=== PATIENT | female | born 1970 | race Caucasian/White ===

== ENCOUNTER → 2018-09-14 16:50 | Outpatient (CLI) | payer OTHER, SELFPAY ==
[2018-07-31 12:38] VITALS: BMI 20.5
== END ==
PROVIDERS: Family Provider Nurse Practitioner; PCP Nurse Practitioner; Referring Provider Otolaryngology Otolaryngology/Facial Plastic Surgery; Visit Provider Otolaryngology Otolaryngology/Facial Plastic Surgery
DX: J32.9 Chronic sinusitis, unspecified (principal)
CPT/HCPCS: 87070; 87205

== ENCOUNTER → 2018-10-28 12:30 | Outpatient (CLI) | payer OTHER, SELFPAY ==
[2018-07-31 12:38] VITALS: BMI 20.5
--- NOTE | 2018-10-28 12:46 | CT_ITS ---
STUDY: CT MAXILLOFACIAL SINUSES REASON FOR EXAM: Female, 48 years old. RADIATION DOSAGE (If Supplied By Facility): CTDIvol = ( 33.06 ) mGy, DLP = ( 767.73 ) mGycm TECHNIQUE: The patient was scanned in a multi detector CT scanner. High resolution axial imaging was performed without the administration of intravenous contrast material. Sagittal and coronal images were reconstructed. Individualized dose optimization techniques were used for this CT. COMPARISON: None. FINDINGS: FRONTAL SINUSES: Normal aeration, without mucosal inflammatory disease. ETHMOIDAL SINUSES: Normal aeration, with minimal mucosal inflammatory disease. MAXILLARY SINUSES: Normal aeration, with air-fluid level noted in the right maxillary sinus SPHENOIDAL SINUSES: Normal aeration, without mucosal inflammatory disease. There is patency of the bilateral maxillary infundibuli with normal uncinate processes, ethmoid bullae, and hiatus semilunaris. Normal bilateral middle turbinates. Normal bilateral inferior turbinates. Normal midline nasal septum. There is patency of the bilateral nasal airways. The visualized osseous structures are normal. The visualized bilateral orbital contents are normal. CT/Sinus/Facial Bone IMPRESSION: Air-fluid level in the right maxillary sinus suggests acute maxillary sinusitis Minimal mucosal thickening in the ethmoid sinuses Electronically Signed: Edgardo Roldan MD at 17:20 EDT , Service support ,
== END ==
PROVIDERS: Family Provider Internal Medicine; PCP Internal Medicine; Referring Provider Otolaryngology; Visit Provider Otolaryngology
DX: J32.9 Chronic sinusitis, unspecified (principal)
CPT/HCPCS: 70486

== ENCOUNTER 2019-06-17 04:29 | Emergency (ER) | payer OTHER, SELFPAY ==
[2018-07-31 12:38] VITALS: BMI 20.5
[2019-06-17 04:30] VITALS: BP 133/92; PULSE 69; RESP 14; TEMP 36.5; O2SAT 100; BMI 20.9
--- NOTE | 2019-06-17 04:49 | ED.VIS.FEGU ---
History of Present Illness Chief Complaint: Vag Bleeding Informant: Patient Pain: Pelvic Pain Onset: Days - 3 Context: Gradual Onset Timing: Waxes and wanes Quality: Cramping Location: Suprapubic Current Severity: Moderate Maximum Severity: Moderate Relieved by: - - Not relieved by Advil Issue: Vaginal bleeding Onset: Days 11-19 Current Severity: Heavy Current pads/hr: 1 - x about 48 hrs Maximum Severity: Heavy Associated Symptoms: Irregular Period - for 1-2 yrs. Negative for: Dysuria, Frequency, Urgency, Hematuria Last known menstrual period: 3 mos ago Sexually: Active, Single Partner - Control: No control Narrative: Heavy vaginal bleeding for the past 48 hours or so, states that she has been going through about 1 pad/tampon per hour for that entire period of time. Feeling generally weak but not lightheaded or near syncopal. She is having some pelvic cramping that is similar to menstrual cramping but worse. It is nonlateralizing. No vaginal discharge or other symptoms. Past Medical History - Allergies and Home Meds Allergies/Adverse Reactions: Allergies ampicillin trihydrate [From Principen] Allergy (Verified 06/17/19 04:30) Rash azithromycin Allergy (Verified 06/17/19 04:30) Hives clarithromycin Allergy (Verified 06/17/19 04:30) Other doxycycline Allergy (Verified 06/17/19 04:30) Rash Penicillins Allergy (Verified 06/17/19 04:30) Unknown Sulfa (Sulfonamide Antibiotics) Allergy (Verified 06/17/19 04:30) Unknown Primary Care Physician: Iris Humphries DO [Primary Care Provider] - Past Medical History: None Lives: With Family Smoking Status: Never smoker Review of Systems General: Reports: Malaise. Denies: Chills, Fever, Sweats Eyes: Denies: Visual changes - bilaterally, Diplopia ENT: Denies: Rhinorrhea, Sore throat Cardiovascular: Denies: Chest pain, Palpitations Respiratory: Denies: Dyspnea, Cough, Dyspnea on exertion Gastrointestinal: Reports: Abdominal pain. Denies: Nausea, Vomiting, Diarrhea, Melena, Hematochezia Genitourinary: Reports: - - Vaginal bleeding. See HPI.. Denies: Dysuria, Hematuria, Frequency Musculoskeletal: Denies: Back pain, Extremity Pain Skin: Denies: Rash, Wounds Neurological: Denies: Headache, Weakness, Numbness Physical Exam Vital Signs/Narrative: Vital Signs Temp Pulse Resp BP Pulse Ox 06/17/19 04:30 97.7 F L 69 14 133/92 H 100 Inital Vital Signs reviewed: Yes General: Well nourished, Well developed, - - Well-appearing, conversive, no acute distress Head: Normocephalic, Atraumatic Eyes: Perrl, EOMI ENT: Moist mucous membranes, No rhinorrhea Neck: Supple, Nontender Cardiovascular: Regular rate, Regular rhythm, No murmurs. Negative for: Tachycardia Respiratory: No distress, CTA bilaterally, Chest nontender Abdomen: Soft, Nondistended, Normal bowel sounds, Tender - Suprapubic only. Negative for: Guarding, Rebound tenderness : Speculum exam: Normal external genitalia, No vaginal lesions, No vaginal discharge Back: Nontender, Normal Inspection. Negative for: CVA tenderness Extremities: Nontender, No edema Skin: Normal color, No rash, No Trauma Neurological: Alert, Oriented x3, Cranial nerves II-XII grossly intact, Normal Strength, Normal Sensation, Normal Gait Psychological: Normal affect, Normal Mood Diagnostic/Tx/Re-eval Laboratory Tests 06/17/19 06/17/19 Range/Units 04:40 04:40 WBC 5.5 (4.4-11.0) K/mm3 RBC 3.49 L (4.2-5.4) M/mm3 Hgb 11.8 L (12.0-15.0) g/dL Hct 33.9 L (37-47) % MCV 97.1 (81-99) fL MCH 33.8 H (27.0-32.0) pg MCHC 34.8 (32-36) g/dL RDW Std Deviation 41.6 (35.1-43.9) fl RDW Coeff of Rosi 11.7 (11.6-14.6) % Plt Count 148 L (150-450) K/mm3 MPV 11.7 (6.2-12.0) fl Immature Gran % (Auto) 0.500 (0.0-0.9) % Neut % (Auto) 59.1 (47-70) % Lymph % (Auto) 22.8 (19-41) % Emmet % (Auto) 11.6 H (0-10) % Eos % (Auto) 5.1 H (0-5) % Baso % (Auto) 0.9 (0-1) % Absolute Neuts (auto) 3.3 (2.0-7.7) X10^3/uL Absolute Lymphs (auto) 1.26 (0.83-4.51) X10^3/uL Nucleated RBC % 0 (0-5) % Serum , Qual NEGATIVE Negative - Medical Decision/Diagnostic Studies Pelvic exam shows very mild vaginal bleeding right now. Orthostatics are normal, she is clinically well-appearing and hemodynamically very stable. Her hemoglobin is 11.3. This is very reassuring in context. I discussed all this with Dr. Capps, her recommendation is to prescribe Provera 10 mg daily for 10 days and to have her follow-up in the office which I think is very reasonable. Her was negative, I discussed all this with the patient she is comfortable with this plan. I do not think an emergent ultrasound is necessary or indicated right now, but it may be obtained as an outpatient. Ultrasound is not available at the time this patient was seen overnight. ED Disposition - Plan for ED Patient: Disposition: Home or Assisted Living Diagnosis: Dysfunctional uterine bleeding Instructions: Dysfunctional Uterine Bleeding Prescriptions: Medroxyprogesterone Acetate [Provera] 10 mg PO DAILY #10 tab Transmission Status: Pending to [id number] Referrals: Emely Capps MD [STAFF PHYSICIAN] - As soon as possible (call for appt)
[2019-06-17 04:52] LABS: Hematocrit 33.9 % (37-47); Hemoglobin 11.8 g/dL (12.0-15.0); Lymphocyte % 22.8 % (19-41); Mean Corp Hgb Conc 34.8 g/dL (32-36); Mean Corpuscular Hgb 33.8 pg (27.0-32.0); Mean Corpuscular Volume 97.1 fL (81-99); Mean Platelet Vol. 11.7 fl (6.2-12.0); Monocyte% 11.6 % (0-10); Neutrophil % 59.1 % (47-70); Platelet Count 148 K/mm3 (150-450); RBC Distribution Width CV 11.7 % (11.6-14.6); RBC Distribution Width SD 41.6 fl (35.1-43.9); Red Blood Count 3.49 M/mm3 (4.2-5.4); White Blood Count 5.5 K/mm3 (4.4-11.0)
[2019-06-17 04:53] LABS: Absolute Lymphocyte Count 1.26 X10^3/uL (0.83-4.51); Absolute Neutrophil Count 3.3 X10^3/uL (2.0-7.7); Basophil# 0.05 X10^3/uL; Basophil% 0.9 % (0-1); Eosinophil# 0.28 X10^3/uL; Eosinophils% 5.1 % (0-5); Lymphocyte # 1.26 X10^3/ul (4.0); Monocyte# 0.64 X10^3/uL; NRBC Flagged by Analyzer 0 % (0-5); Neutrophil # 3.26 X10^3/uL (2.7-7.7)
[2019-06-17 05:00] LABS: Internal QC Validated? YES +Cl - CLEAR BKGD; Pregnancy, Serum, hCG Quali. NEGATIVE Negative
[2019-06-17 05:02] VITALS: BP 112/82; BP 114/82; BP 115/80; PULSE 65; PULSE 69; PULSE 77
[2019-06-17] MEDS: 0.9% Normal Saline 1,000 ML 1000 ML IV (05:08)
[2019-06-17 05:36] VITALS: BP 114/60; PULSE 67; RESP 18; O2SAT 98
== END 2019-06-17 05:36 | disposition home or self-care (01) ==
PROVIDERS: Emergency Provider Emergency Medicine; Family Provider Internal Medicine; PCP Internal Medicine
DX: N93.8 Other specified abnormal uterine and vaginal bleeding (principal)
CPT/HCPCS: 84703; 85025; 99284; J7030; A4216

== ENCOUNTER 2019-07-08 10:28 | Day surgery (SDC) | payer OTHER, SELFPAY ==
[2019-07-05 17:38] LABS: Hematocrit 27.1 % (37-47); Hemoglobin 8.7 g/dL (12.0-15.0); Mean Corp Hgb Conc 32.1 g/dL (32-36); Mean Corpuscular Hgb 32.6 pg (27.0-32.0); Mean Corpuscular Volume 101.5 fL (81-99); Mean Platelet Vol. 11.8 fl (6.2-12.0); Platelet Count 201 K/mm3 (150-450); RBC Distribution Width CV 12.3 % (11.6-14.6); RBC Distribution Width SD 45.2 fl (35.1-43.9); Red Blood Count 2.67 M/mm3 (4.2-5.4); White Blood Count 4.9 K/mm3 (4.4-11.0)
[2019-07-08] VITALS (7 sets, daily range): BP systolic 111–127; BP diastolic 78–83; PULSE 77–88; RESP 15–16; TEMP 36.8–37.2; O2SAT 100; BMI 20.2
--- NOTE | 2019-07-08 06:59 | HP.PCM_ITS ---
History and Physical Date of Admission: 07/08/19 Radha Doherty, a 48 year old female 1 0 2 0 1, presented for: -- Pre-Op Radha is being seen for pre op visit. Pt to have D and C, possible polypectomy with Dr. Capps on 07-08-19. Pt having surgery due to heavy, irregular bleeding. Medications and allergies are up to date. Surgery consents signed and information reviewed with pt. AM -- Here for preop dary prior to D and C and possible polypectomy for heavy , irregular bleeding. Pelvic sono at last visit reviewed: UTERUS: 9.3 x 5.2 x 4.2cm. ENDOMETRIAL ECHO: 16.6mm -- Thickened endometrium irregular endo stripe noted. RIGHT OVARY: 3 x 2.5 x 1cm. simple cyst seen measures 2.6 x 1.9 x 2.2cm. LEFT OVARY: 2.3 x 2.3 x 2cm. simple cyst seen measures 1.5 x 1.5 x 1.2cm. FREE FLUID: NONE. Advised of R,B,A of EMB in ofc vs D and C and possible polypectomy in OR. After consideration she elects to proceed with D and C and polypectomy in the OR. Initially requested Dec date for surgery , but called then to move this up due to continued bleeding. EB ALLERGIES: Penicillins, Rash, Sulfa (Sulfonamide Antibiotics), Nausea, Biaxin, Muscle aches, Doxycycline, Rash, Erythromycin Base and Nausea MEDICATIONS HISTORY: Patient is also takin. No Meds REVIEW OF SYSTEMS: GENERAL - Denies fever, or chills SKIN - Denies skin changes EYES - Denies visual changes EARS - Denies difficulty hearing NOSE - Denies nasal congestion or bleeding MOUTH - Denies sore throat or difficulty swallowing NECK - Denies pain or swelling RESPIRATORY - Denies shortness of breath or wheezing CARDIOVASCULAR - Denies palpitations or chest pain GASTROINTESTINAL - Denies nausea, vomiting, diarrhea, constipation GENITOURINARY - Denies dysuria, frequency of urination, incontinence of urine MUSCULOSKELETAL - Denies joint or muscle pain NEUROLOGICAL - Denies localized numbness or weakness PSYCHIATRIC - Denies depression or anxiety ENDOCRINE - Denies heat or cold intolerance, weight loss or gain HEMATO-IMMUNOLOGIC - Denies excessive bleeding with cuts PAST HISTORY: Breast/Ovarian/Colon Cancers - Denies Infections - Chicken pox Illnesses - BAV, back pain Accidents - no injuries of consequence History of Abnormal PAPS - Denies Hospitalizations - Childbirth and see surgery endometriosis and alopecia; SURGICAL HISTORY: 1. T and A 2. one wisdom tooth 3. laparoscopy MENSTRUAL HISTORY: LMP Known?- Approximate Amount/Duration - prolonged, Regularity - missed periods, Prior Menses - 03/17/2005, LMP - 06/12/19, Age Onset Menarche - 13 FAMILY HISTORY: Maternal Grandparent - Type 2 Diabetes; SOCIAL HISTORY: Alcohol Use - denies drinking Smoking - denies smoking Diet - moderate, balanced diet Lifestyle - low stress lifestyle and Exercise - none Seat Belt Use - always Employer - [employer] Job Description - credit collections rep Illicit Drug Use - denies use of street drugs Sexual Activity - Hours Worked - 40 hours per week Spouse-Sig Other Name - Richard Doherty Spouse-Sig Other Occupation - [employer] Children Name(s) - Dale Control - none PHYSICAL EXAMINATION BP- 114/82 Sitting, Right arm, regular cuff Temp- 98.1 Taken Orally Weight- 127.80 lbs Height- 64.50 inch BMI:21.64 CONSTITUTIONAL - well nourished, well developed and in no distress HEENT - Normocephalic, atraumatic, sclerae anicteric. EOMI. NECK - no nuchal rigidity EXTREMITIES - no deformities NEUROLOGICAL - cranial nerves 2-12 intact PSYCHIATRIC - alert, oriented to time, place, and person, mood appropriate and affect appropriate ASSESSMENT: 1. Excessive Bleeding In The Premenopausal Period 2. Abnormal Findings On Diagnostic Imaging Of Other Specified Body Structures PLAN BY DIAGNOSIS: 1. Abnormal Findings On Diagnostic Imaging Of Other Specified Body Structures and Excessive Bleeding In The Premenopausal Period Reviewed ED records, and sono results from prior visits. Differential diagnosis reviewed at last visit and discussed available treatments then. Thickened endometrium on pelvic ultrasound. Recommend: hysteroscopy, D and C, and possible resection of polyp if present. Elects to proceed with D and C (only) with possible polypectomy , no hysteroscopy... to contain costs. Reviewed R,B,A of D and C , polypectomy as well as anticipated preop, operative and postop recovery. All questions answered, Consents signed To central registration next for repeat CBC. Plan UPT day of surgery. RTO in 2 wk after surgery for next appt, postop check up. Patient seen and examined prior to surgery. NO changes in dx or plan, physical exam. Pt's family with questions re pt leg cramps: advised re meds, most commonly d/t her anemia. Other meds: calcium, Mg, Potassium also ok. Proceed with suction D and C and possible polypectomy. Meredith Capps MD 07/08/19 [id number]
[2019-07-08 10:46] LABS: Internal QC Validated? YES +Cl - CLEAR BKGD
[2019-07-08 10:50] LABS: Pregnancy, Urine Negative Negative
[2019-07-08] MEDS: Lactated Ringers 1,000 ML 100 ML IV (11:02)
--- NOTE | 2019-07-08 12:00 | EMB_PTH ---
PATIENT: THEA SEGURA [place] [facility] [place][id number] AGE/SX: 48/F ROOM: RE07/08/[address]: Dr. Emely Capps MD : 1970 BED: DIS: 07/08/2019 SPEC #: [id number] RECD: 07/08/19 16:18 STATUS: STANTON MICKEY #: [id number] NADINE: 07/08/19 12:[address]: Emely Capps DEPT: SURGICAL PATHOLOGY RECD BY: Lisy Garcia ENTERED: 07/11/19 11:12 SP TYPE: ENDOM BX/C LEYDA DR: Dr. Iris Humphries DO Tissues: Endometrium, NOS Procedures: Surgery Specimen Level IV HEADER OPERATION: Dilation and curettage PRE-OP DIAGNOSIS: Excessive bleeding in the premenopausal period, abnormal findings of diagnostic image TISSUE SUBMITTED: Endometrial curettings MICROSCOPIC DIAGNOSIS Endometrial curettings: Proliferative endometrium with glandular and stromal breakdown. CJ:yvonne 07/12/19 MICROSCOPIC DESCRIPTION Slides are reviewed. GROSS DESCRIPTION Received in fixative is one container labeled with the patient's name and designated endometrial curettings. The specimen consists of multiple fragments of hemorrhagic soft tissue mixed with mucoid tissue that in aggregate measure 3 x 2.5 x 0.3 cm. The entire specimen is submitted in one cassette. / CJ:yvonne 07/11/19 TC:5 CPT: 95937
--- NOTE | 2019-07-08 12:21 | DCINST_ITS ---
Discharge Diet: No Restrictions Discharge Activity: May Shower, May Take a Tub Bath Return to work on:: 07/11/19 May resume sexual activity in: 1 week Call your doctor if you observe: Fever of 101 or Higher, Using more than one pad per hour, Uncontrolled pain Additional Instructions: Take tylenol 500 mg tablets one or two tablets by mouth every 8 hrs as needed for pain. Add EITHER two (220 mg tablets) Aleve or Three (200 mg tablets) Ibuprofen by mouth every 8 hr if needed for more severe pain. Allergies/Adverse Reactions: Allergies ampicillin trihydrate [From Principen] Allergy (Verified 07/08/19 10:36) Rash azithromycin Allergy (Verified 07/08/19 10:36) Hives clarithromycin Allergy (Verified 07/08/19 10:36) Other doxycycline Allergy (Verified 07/08/19 10:36) Rash Penicillins Allergy (Verified 07/08/19 10:36) Unknown Sulfa (Sulfonamide Antibiotics) Allergy (Verified 07/08/19 10:36) Unknown Medications to take at Discharge Acetaminophen [Tylenol Extra Strength] 500 mg PO Q4H PRN PRN 07/06/19 RX: Ferrous Gluconate 325 mg PO BIDCM #60 tab 07/08/19 The following prescriptions were given: RX: Ferrous Gluconate 325 mg PO BIDCM #60 tab Transmission Status: Pending to [id number] Primary Care Physician: Iris Humphries DO [Primary Care Provider] - Test Results: Test results from this visit will be discussed in further detail at your follow- up appointment, if applicable. Please Follow Up With: Emely Capps MD When: 1-2 wk as scheduled for postop check up
--- NOTE | 2019-07-08 12:26 | OP.PCM_ITS ---
Report of Operation Date of Procedure: 07/08/19 Pre-Operative Diagnosis: menorrhagia, excessive bleeding premenopause. Th ickened endometrial stripe on sono, possible endometrial polyp Post-Operative Diagnosis: same Surgery/Procedure Performed:: Dilation and curettage Description of Surgical Findings:: Findings: Parous appearing cervix, minimal uterine curettings Type of Anesthesia:: Local MAC Anesthesiologist: Kenya Gorman CRNA Specimen's removed: Uterine curettings, possible polyp Fluids Replaced: LR Description of Procedure: Narrative account After the R,B,Alternatives of the procedure were reviewed with the patient and her family, informed consent was obtained. The patient was taken to the operat ing room with an IV running and placed in dorsal supine position of the operating table. She was given MAC IV sedation and repositioned to the dorsal lithotomy position and prepped and draped in the usual sterile fashion. A graves speculum was placed into the vagina and the cervix was brought into view. The cervix was parous appearing . The cervix was instilled with 10 cc of 1% lidocaine as a paracervical block using a 22 G spinal needle. A single toothed tenaculum was applied to the anterior lip of the cervix. The cervix was then gently probed and sequentially dilated to allow admission of the curette. A sharp curettage was performed and minimal tissue was withdrawn and set aside. The polyp forceps were introduced then to evacuate additional tissue. no polyp was noted. One final pass was conducted with the sharp curette tip advanced through the cervix to the uterine fundus . Good Crei was noted in all quadrants. The tissue was set aside for later pathology review. Excellent hemostasis was noted. The single toothed tenaculum was removed from the cervix and a RayTec was used to remove any remaining tissue and blood from the upper vagina and cervix. The procedure was terminated. The speculum was removed. The patient was returned to dorsal supine position and awakened from IV sedation and transferred to her recovery room bed in stable condition after tolerating the procedure well. Urine 50 cc for case. Sponge, lap, needle and instrument counts were correct x two. medications given intraoperatively included 10 cc of 1% lidocaine without epinephrine instilled as a paracervical block. - Admit VTE Documentation VTE Present on Admission: No VTE Mechan Device Prophylaxis: SCD's VTE Pharm Prophylaxis ordered?: No
[2019-07-08 12:52] LABS: Hematocrit 25.1 % (37-47); Hemoglobin 8.3 g/dL (12.0-15.0); Mean Corp Hgb Conc 33.1 g/dL (32-36); Mean Corpuscular Hgb 33.5 pg (27.0-32.0); Mean Corpuscular Volume 101.2 fL (81-99); Mean Platelet Vol. 11.3 fl (6.2-12.0); Platelet Count 191 K/mm3 (150-450); RBC Distribution Width SD 43.3 fl (35.1-43.9); Red Blood Count 2.48 M/mm3 (4.2-5.4); White Blood Count 3.4 K/mm3 (4.4-11.0)
[2019-07-08] MEDS: Acetaminophen 500 MG Tablet 1000 MG PO (13:03)
== END 2019-07-08 14:18 | disposition home or self-care (01) ==
LOC: SDC 10:28 → AC 10:29
PROVIDERS: Family Provider Internal Medicine; PCP Internal Medicine; Referring Provider Obstetrics & Gynecology; Visit Provider Obstetrics & Gynecology
PROC: (CPT 58120; principal; 2019-07-08 11:45)
DX: N85.8 Other specified noninflammatory disorders of uterus (principal); N92.4 Excessive bleeding in the premenopausal period; Q23.1 Congenital insufficiency of aortic valve; D64.9 Anemia, unspecified
CPT/HCPCS: 00940; 58120; 36415; 81025; 85027; 88305; J7120; J2405

== ENCOUNTER → 2019-07-22 09:42 | Outpatient (CLI) | payer BC, SELFPAY ==
[2019-07-08 10:49] VITALS: BMI 20.2
--- NOTE | 2019-07-22 09:48 | BI_ITS ---
MAMMOGRAPHY - BILATERAL SCREENING REASON FOR EXAM: Female, 48 years old. Routine annual screening examination. PERTINENT HISTORY: Non-contributory. TECHNIQUE: Digital bilateral breast alejandro (3D mammographic acquisition) in the CC and MLO projections. 2-D mediolateral oblique (MLO) and craniocaudad (CC) views of both breasts were obtained. CAD: Full Field Digital Mammography with Computer Added Detection was performed. COMPARISON: Comparison is made with prior study dated March 12, 2017 and December 06, 2014. FINDINGS: Breast Composition: The breasts are extremely dense, which lowers the sensitivity of mammography. There are no dominant masses or suspicious calcifications. No other significant abnormalities are identified. There has been no significant change since the prior study. BI/SCREEN MAMM (CAD) W/ALEJANDRO BILAT IMPRESSION: Stable bilateral screening mammogram. Yearly follow-up mammogram recommended. (A) ASSESSMENT CATEGORY: BIRADS Category 1: Negative. A letter regarding these results will be sent to the patient by the facility within 30 days. Approximately 10% of breast cancers are not detected by mammography. A normal mammogram should not delay biopsy of a clinically suspicious abnormality. [id number] Electronically Signed: Jose Rafael Luna, at 11:04 EST , Service support ,
== END ==
PROVIDERS: Family Provider Internal Medicine; PCP Internal Medicine; Referring Provider Obstetrics & Gynecology; Visit Provider Obstetrics & Gynecology
DX: Z12.31 Encounter for screening mammogram for malignant neoplasm of breast (principal)
CPT/HCPCS: 77063; 77067

== ENCOUNTER → 2019-09-14 14:31 | Outpatient (CLI) | payer BC, SELFPAY ==
[2019-07-08 10:49] VITALS: BMI 20.2
--- NOTE | 2019-09-14 14:40 | RAD_ITS ---
STUDY: X-RAY - CERVICAL SPINE REASON FOR EXAM: Female, 48 years old. A possible lump on the back of the neck. TECHNIQUE: 6 view(s) of the cervical spine were obtained. COMPARISON: None FINDINGS: Normal anterior atlantoaxial articulation. Normal odontoid process. Normal cervical lordosis. Normal vertebral bodies and endplates. Normal disc space heights. Normal visualized intervertebral neuroforamina. There is no evidence of acute fracture or loss of vertebral axial height. There is maintenance of normal alignment. The soft tissue structures are unremarkable. RAD/Cerv Spine 4 or 5 Views IMPRESSION: Normal x-ray examination of the visualized cervical spine. Electronically Signed: Yemi Kemp DO at 23:06 EST Tel [phone], Service support ,
== END ==
PROVIDERS: PCP Internal Medicine; Referring Provider Nurse Practitioner; Visit Provider Nurse Practitioner
DX: M54.2 Cervicalgia (principal)
CPT/HCPCS: 72050

== ENCOUNTER → 2019-10-21 07:17 | Outpatient (CLI) | payer BC, SELFPAY ==
[2019-10-06 14:00] VITALS: BMI 20.2
--- NOTE | 2019-10-21 07:45 | MRI_ITS ---
STUDY: MRI SOFT TISSUE NECK WITH AND WITHOUT CONTRAST REASON FOR EXAM: Female, 49 years old. Posterior Neck lump x 2 months. Area of spinous process. (unable to palpate anything) TECHNIQUE: Standarized fat and water weighted pulse sequences were obtained in all 3 orthogonal plane pre and post administration of 11ml dotarem IV. COMPARISON: X-ray 09/14/2019 FINDINGS: Normal bilateral parotid glands. Normal bilateral girls tennis coach spaces. Normal bilateral parapharyngeal spaces. Normal bilateral carotid spaces. Normal bilateral sublingual and submandibular glands and spaces. Normal visualized nasopharynx. Normal retropharyngeal space. Normal perivertebral space. Normal visualized bilateral faucial tonsils. The visualized tongue, tongue base and oropharynx are normal. The visualized cervical lymph nodes (levels I-) are within normal size limits, and maintain normal morphology. There is no demonstrated solid or cystic mass lesion. There is no abnormal contrast enhancement. Normal epiglottis, bilateral vallecula and hypopharynx. The pre-epiglottic and paraglottic adipose spaces are normal. Normal visualized bilateral piriform sinuses, aryepiglottic folds, vocal cords, and arytenoid-cricoid articulations. Normal subglottic trachea. Normal bilateral lobes of the thyroid gland. Normal visualized pulmonary apices. Normal visualized paranasal sinuses. Normal visualized cervical spine. MRI/Orbit Face Neck W/WO Contrast IMPRESSION: Normal unenhanced and enhanced MRI examination of the soft tissues of the neck. Electronically Signed: Ron Greer MD at 9:10 EST Tel , Service support ,
== END ==
PROVIDERS: PCP Internal Medicine; Referring Provider Internal Medicine; Visit Provider Internal Medicine
DX: R22.1 Localized swelling, mass and lump, neck (principal)
CPT/HCPCS: 70543; A9575

== ENCOUNTER 2020-06-19 07:05 | Emergency (ER) | payer BC, SELFPAY ==
[2019-10-06 14:00] VITALS: BMI 20.2
[2020-06-19 07:06] VITALS: BP 134/83; PULSE 76; RESP 22; TEMP 36.7; O2SAT 100; BMI 21.7
--- NOTE | 2020-06-19 07:59 | CT_ITS ---
STUDY: CT BRAIN WITHOUT CONTRAST REASON FOR EXAM: Female, 49 years old. Dizziness, headache, nausea/vomiting today. Hx migraines, nasal septoplasty. RADIATION DOSAGE (If Supplied By Facility): CTDIvol = ( 44.99 ) mGy, DLP = ( 745.49 ) mGycm TECHNIQUE: Transaxial CT imaging of the brain was performed without administration of intravenous contrast material. Individualized dose optimization techniques were used for this CT. COMPARISON: No relevant priors. FINDINGS: Normal soft tissue structures. Normal calvarium. Normal size ventricles and extra-axial spaces for the patient''s age. Normal white matter tracts of the cerebral hemispheres. Normal basal ganglia and thalami. Normal brainstem. Normal cerebellum. There is no intracranial hemorrhage. There are no findings of an acute ischemic infarction. Minimal mucosal thickening of the maxillary sinuses bilaterally. Partial opacification of the ethmoid sinuses bilaterally. Air-fluid level is seen in the left sphenoid sinus. CT/Brain/Head without Contrast IMPRESSION: Sinusitis. Electronically Signed: Jose Rafael Luna, at 9:00 EST , Service support ,
--- NOTE | 2020-06-19 08:00 | EKG12_ITS ---
Test Reason : DIZZINESS Blood Pressure : / mmHG Vent. Rate : 068 BPM Atrial Rate : 068 BPM P-R Int : 152 ms QRS Dur : 072 ms QT Int : 396 ms P-R-T Axes : 076 066 066 degrees QTc Int : 421 ms Normal sinus rhythm Normal ECG Confirmed by LYN HENSLEY, JORDY ([id number]), editorial clerk BARRY MALLORY ([id number]) on 06/21/2020 11:35:23 AM Referred By: BRUNO Confirmed By:JORDY NICHOLSON MD
--- NOTE | 2020-06-19 08:01 | ED.VISSUMM ---
- ER Visit Summary Date of Service: 06/19/20 Chief Complaint: Dizziness and headache History of Present Illness: The patient is a 49 F who presents with dizziness and a headache that began this morning. Patient states she woke up and she felt dizzy. Patient states she felt like her eyes were spinning. Patient also admits to a frontal headache. Patient states her dizziness is worse with any movement of her head. Patient also admits to some tinnitus in her left ear. Patient denies any hearing loss. Patient admits to some nausea and vomiting. Patient denies any fevers or chills. Patient denies any chest pain or shortness of breath. Physical Examination: Vital signs are stable except for mild tachypnea of 22. Patient is afebrile. Patient is in no acute distress. Pupils are equal, round, and reactive to light bilaterally. Extraocular muscles are intact. There is no nystagmus noted. Tympanic membranes are clear bilaterally. Oral mucosa is pink and moist. Neck is supple. Trachea is midline. There is no JVD noted. Heart was regular rate and rhythm. Lungs are clear and equal bilaterally. Abdomen is soft. Bowel sounds are normal. There is mild diffuse tenderness. There is no rebound or guarding noted. Skin is warm dry. Cranial nerves II through XII are intact. There are no focal motor or sensory deficits noted. Test Results: EKG showed normal sinus rhythm with a rate of 58. There are no acute ST or T wave changes. This was unchanged compared to previous EKG dated 11/28/2014. CBC was essentially within normal limits. Comprehensive metabolic profile was normal. Urinalysis does not show any evidence of urinary tract infection. Troponin was normal. CT scan of the brain was obtained. There is no acute intracranial abnormality noted. This was interpreted by the radiologist and reviewed by myself. Emergency Department Course and Treatment: Patient was given a dose of meclizine and Zofran here. Patient was feeling better on reevaluation. Patient was advised that this is most likely a peripheral vertigo. Patient was given prescriptions for meclizine and Zofran. Patient was instructed to follow-up with her primary care physician in 5 to 7 days. Patient understood and was agreeable with the plan. All questions were answered. Disposition: Discharge home Impression: Vertigo This note was generated with [employer] software. It may contain incorrect words, spelling, and punctuation that were not noted in review of the chart prior to signing ED Disposition - Plan for ED Patient: Disposition: Home or Assisted Living Diagnosis: Vertigo Instructions: ED BPV Vertigo Prescriptions: Meclizine HCl [Antivert] 25 mg PO TID PRN PRN #20 tab PRN Reason: Dizziness Transmission Status: Pending to [id number] Ondansetron [Zofran Odt] 4 mg PO Q8H PRN PRN #10 tab PRN Reason: Nausea Transmission Status: Pending to [facility] Referrals: Iris Humphries DO [Primary Care Provider] - 3-5 Days
[2020-06-19 08:13] LABS: Absolute Lymphocyte Count 0.83 X10^3/uL (0.83-4.51); Absolute Neutrophil Count 2.3 X10^3/uL (2.0-7.7); Basophil# 0.05 X10^3/uL; Basophil% 1.3 % (0-1); Eosinophil# 0.29 X10^3/uL; Eosinophils% 7.5 % (0-5); Hematocrit 40.4 % (37-47); Hemoglobin 13.6 g/dL (12.0-15.0); Lymphocyte # 0.83 X10^3/ul (4.0); Lymphocyte % 21.4 % (19-41); Mean Corp Hgb Conc 33.7 g/dL (32-36); Mean Corpuscular Hgb 33.2 pg (27.0-32.0); Mean Corpuscular Volume 98.5 fL (81-99); Mean Platelet Vol. 11.8 fl (6.2-12.0); Monocyte# 0.38 X10^3/uL; Monocyte% 9.8 % (0-10); NRBC Flagged by Analyzer 0 % (0-5); Neutrophil % 59.5 % (47-70); Platelet Count 142 K/mm3 (150-450); RBC Distribution Width CV 11.7 % (11.6-14.6); RBC Distribution Width SD 42.7 fl (35.1-43.9); White Blood Count 3.9 K/mm3 (4.4-11.0)
[2020-06-19] MEDS: Ondansetron 4 MG/2 ML Vial IV (08:21)
[2020-06-19] MEDS: 0.9% Normal Saline 1,000 ML 1000 ML IV (08:21)
[2020-06-19] MEDS: Meclizine HCl 25 MG Tablet PO (08:21)
[2020-06-19 08:30] LABS: ALB/GLOB Ratio 1.2 RATIO (0.9-2.4); AST(SGOT) 11 U/L (15-37); Alanine Aminotransfer ALT/SGPT 18 U/L (13-56); Albumin, Serum 3.6 g/dL (3.2-5.0); Alkaline Phosphatase 47 U/L (45-117); Anion Gap 6 (5-15); BUN 24 mg/dL (7-18); BUN/Creat Ratio 28.5 RATIO (10-20); Calcium,Total 8.4 mg/dL (8.5-10.1); Chloride 109 mmol/L (98-107); Creatinine, Serum 0.84 mg/dL (0.55-1.02); EST Glomerular Filtration Rate 77 mL/min (>60); Est Glom Filt Rate - Afr Amer 93 mL/min (>60); Estimated Creatinine Clearance 77.51 ml/min; Globulin 2.9 g/dL (2.2-4.2); Glucose 99 mg/dL (74-106); Potassium 3.9 mmol/L (3.5-5.1); Protein, Total 6.5 g/dL (6.4-8.2); Sodium Level 142 mmol/L (136-145)
[2020-06-19 09:01] LABS: Bacteria 0 SEEN /hpf (None Seen); White Blood Cells 0 SEEN /hpf (0-5)
[2020-06-19 09:05] LABS: Color, Urine Yellow (Yellow); Glucose, Dipstick Normal (Normal); Ketone-Dipstick Negative (Negative); Leukocyte Esterase-Dipstick Negative /ul (Negative); Nitrite-Dipstick Negative (Negative); Occult Blood-Urine 250 /ul (Negative); Protein-Dipstick Negative (Negative); Urine Bilirubin Dipstick Negative (Negative); Urine Clarity Sl. Cloudy (Clear); Urine Urobilinogen Normal (Normal)
[2020-06-19 09:10] LABS: Squamous Epithelial Cells - UA 5-10 SEEN /hpf (5-10)
[2020-06-19 09:11] LABS: Mucous, Urine 3+ /hpf (<or=2+); Red Blood Cells-Urine 0-5 SEEN /hpf (0-5)
[2020-06-19 09:36] VITALS: BP 115/77; PULSE 75
[2020-06-19 10:18] VITALS: BP 126/81; PULSE 70; RESP 16; O2SAT 100
== END 2020-06-19 10:19 | disposition home or self-care (01) ==
PROVIDERS: Emergency Provider Emergency Medicine; PCP Internal Medicine
DX: R42 Dizziness and giddiness (principal)
CPT/HCPCS: 70450; 80053; 81001; 84484; 85025; 93005; 96361; 96374; 99285; J7030; A4216; J2405

== ENCOUNTER → 2020-08-08 10:15 | Outpatient (CLI) | payer BC, SELFPAY | PROVIDERS: PCP Internal Medicine; Referring Provider Otolaryngology; Visit Provider Otolaryngology | DX: Z20.828 Contact with and (suspected) exposure to other viral communicable diseases (principal); Z11.59 Encounter for screening for other viral diseases | CPT/HCPCS: 87635; C9803; U0003 ==

== ENCOUNTER → 2021-01-25 07:55 | Outpatient (CLI) | payer OTHER, SELFPAY ==
--- NOTE | 2021-01-25 08:20 | BI_ITS ---
MAMMOGRAPHY - BILATERAL SCREENING REASON FOR EXAM: Female, 50 years old. Routine annual screening examination. PERTINENT HISTORY: Non-contributory. TECHNIQUE: Digital bilateral breast alejandro (3D mammographic acquisition) in the CC and MLO projections. 2-D mediolateral oblique (MLO) and craniocaudad (CC) views of both breasts were obtained. CAD: Full Field Digital Mammography with Computer Added Detection was performed. COMPARISON: Comparison is made with prior study dated 07/22/2019 and 03/12/2014. FINDINGS: Breast Composition: The breasts are extremely dense, which lowers the sensitivity of mammography. There are no dominant masses or suspicious calcifications. No other significant abnormalities are identified. There has been no significant change since the prior study. BI/SCRN MAMM (CAD)W/ALEJANDRO BILAT IMPRESSION: Stable bilateral screening mammogram. Yearly follow-up mammogram recommended. (A) ASSESSMENT CATEGORY: BIRADS Category 1: Negative. A letter regarding these results will be sent to the patient by the facility within 30 days. Approximately 10% of breast cancers are not detected by mammography. A normal mammogram should not delay biopsy of a clinically suspicious abnormality. [id number] Electronically Signed: Jose Rafael Luna MD at 8:59 EDT , Service support ,
== END ==
PROVIDERS: PCP Internal Medicine; Referring Provider Internal Medicine; Visit Provider Internal Medicine
DX: Z12.31 Encounter for screening mammogram for malignant neoplasm of breast (principal)
CPT/HCPCS: 77063; 77067

== ENCOUNTER 2021-10-22 06:19 | Outpatient (CLI) | payer OTHER, SELFPAY ==
[2021-10-22 07:13] LABS: Absolute Lymphocyte Count 1.37 X10^3/uL (0.83-4.51); Basophil# 0.06 X10^3/uL; Basophil% 1.4 % (0-1); Eosinophil# 0.37 X10^3/uL; Eosinophils% 8.4 % (0-5); Hematocrit 39.3 % (37-47); Hemoglobin 13.3 g/dL (12.0-15.0); Lymphocyte # 1.37 X10^3/ul (0.83-4.51); Lymphocyte % 31.1 % (19-41); Mean Corp Hgb Conc 33.8 g/dL (32-36); Mean Corpuscular Hgb 32.6 pg (27.0-32.0); Mean Corpuscular Volume 96.3 fL (81-99); Mean Platelet Vol. 11.9 fl (6.2-12.0); Monocyte# 0.58 X10^3/uL; Monocyte% 13.2 % (0-10); NRBC Flagged by Analyzer 0 % (0-5); Neutrophil % 45.4 % (47-70); Platelet Count 155 K/mm3 (150-450); RBC Distribution Width CV 11.6 % (11.6-14.6); RBC Distribution Width SD 41.1 fl (35.1-43.9); Red Blood Count 4.08 M/mm3 (4.2-5.4); White Blood Count 4.4 K/mm3 (4.4-11.0)
[2021-10-22 07:41] LABS: ALB/GLOB Ratio 1.4 RATIO (0.9-2.4); AST(SGOT) 13 U/L (15-37); Alanine Aminotransfer ALT/SGPT 19 U/L (13-56); Albumin, Serum 3.9 g/dL (3.2-5.0); Alkaline Phosphatase 58 U/L (45-117); Anion Gap 3 (5-15); BUN 24 mg/dL (7-18); Calcium,Total 9.3 mg/dL (8.5-10.1); Chloride 111 mmol/L (98-107); Cholesterol 173 mg/dL (200); Creatinine, Serum 0.89 mg/dL (0.55-1.02); EST Glomerular Filtration Rate 72 mL/min (>60); Est Glom Filt Rate - Afr Amer 87 mL/min (>60); Globulin 2.7 g/dL (2.2-4.2); Glucose 93 mg/dL (74-106); High Density Lipoprotein 63 mg/dL; Magnesium 2.2 mg/dL (1.6-2.6); Potassium 3.8 mmol/L (3.5-5.1); Protein, Total 6.6 g/dL (6.4-8.2); Sodium Level 142 mmol/L (136-145); Thyroid Stim Hormone (TSH) 4.14 uIU/mL (0.358-3.74); Triglycerides 53 mg/dL; Very Low Density Lipoprotein 11 mg/dL (5-40)
== END 2021-10-22 23:59 | disposition home or self-care (01) ==
LOC: LAB 06:24
PROVIDERS: PCP Internal Medicine; Referring Provider Internal Medicine; Visit Provider Internal Medicine
DX: Z13.220 Encounter for screening for lipoid disorders (principal); E83.42 Hypomagnesemia; R00.2 Palpitations
CPT/HCPCS: 36415; 80053; 80061; 83735; 84443; 85025

== ENCOUNTER 2021-11-19 06:30 | Outpatient (CLI) | payer OTHER, SELFPAY ==
--- NOTE | 2021-11-19 06:30 | MRI_ITS ---
STUDY: MRI CERVICAL SPINE WITHOUT CONTRAST REASON FOR EXAM: Female, 51 years old. Pain into b/l shoulders TECHNIQUE: Standardized fat and water weighted pulse sequences were obtained in the sagittal and axial planes. COMPARISON: None FINDINGS: Normal foramen magnum and brainstem-cervical cord junction. Normal craniovertebral junction. Normal anterior atlantoaxial articulation. Normal odontoid process. Normal cervical lordosis. Normal vertebral bodies and posterior osseous elements. C2-3: Normal endplates. Normal disc height, signal and morphology. Normal central canal and intervertebral neural foramina. C3-4: Normal endplates. Normal disc height, signal and morphology. Normal central canal and intervertebral neural foramina. C4-5: Normal endplates. Normal disc height, signal and morphology. Normal central canal and intervertebral neural foramina. C5-6: Normal endplates. Mild disc space height narrowing. Normal central canal and intervertebral neural foramina. C6-7: Normal endplates. Minimal disc space height narrowing. Small osteophytic spur in the right uncovertebral joint. Normal central canal and left intervertebral neural foramen. Mild stenosis of the right intervertebral neural foramen. C7-T1: Normal endplates. Normal disc height, signal and morphology. Normal central canal and intervertebral neural foramina. T1-T2, T2-T3 and T3-T4: (Sagittal only). Normal endplates. Normal disc height, signal and morphology. No ventral extradural defect. Normal central canal and intervertebral neural foramina. Normal cervical cord. Normal upper thoracic spinal cord. Normal included brainstem and cerebellum. Normal visualized soft tissue structures. MRI/Spine Cervical (Routine) IMPRESSION: 1. Mild stenosis of the right C6-C7 intervertebral neural foramina due to small osteophyte arising from the right uncovertebral joint. 2. No MRI evidence of cervical extruded disc fragment or cervical nerve root displacement. 3. Normal cervical spinal cord. Electronically Signed: Everette Chris MD at 10:44 EDT ,
--- NOTE | 2021-11-19 07:27 | ECHOD_ITS ---
Reason For Study: Bicuspid AV Procedure This was a 2D Doppler, Color Flow transthoracic echocardiogram. The exam was of adequate technical quality. Exam performed in department. Left Ventricle Normal LV size. Left ventricular systolic function is normal. The estimated ejection fraction is 60 %. No evidence for diastolic dysfunction. No regional wall motion abnormalities noted. Right Ventricle Normal RV size. Normal systolic function. Atria Normal left atrium. Normal right atrium. No doppler evidence for ASD. Mitral Valve There is no mitral annular calcification. Mild diffuse mitral valve thickening. Mild mitral valve prolapse, posterior leaflet. Trivial mitral valve insufficiency. Tricuspid Valve Normal tricuspid valve. Mild tricuspid valve insufficiency. Right ventricular systolic pressure estimated to be 19 mmHg. Aortic Valve Bicuspid aortic valve. Mild diffuse aortic valve thickening. Mild focal aortic valve calcification. Trivial eccentric aortic valve insufficiency. Pulmonic Valve The pulmonic valve is not well visualized. Mild (1+) pulmonic valve insufficiency. Great Vessels The ascending aorta is mildly dilated. Pericardium/Pleural No pericardial effusion. MMode/2D Measurements & Calculations LVIDd: 4.3 cm IVSd: 0.67 cm LVOT diam: 2.1 cm LVIDs: 2.9 cm LVPWd: 0.83 cm LVOT area: 3.3 cm2 RVDd: 3.2 cm FS: 33.4 % Ao root diam: 3.9 cm LAV(MOD-sp4): 30.8 ml Aortic Valve Planimetry: 2.3 cm2 LA dimension: 2.0 cm LA A4 area: 13.2 cm2 RA A4 area: 11.7 cm2 Time Measurements MV dec time: 0.20 sec Doppler Measurements & Calculations MV E max mic: 69.6 cm/sec Lat Peak E' Mic: 8.1 cm/sec Med Peak E' Mic: 8.0 cm/sec MV A max mic: 83.6 cm/sec E/E' lat: 8.6 E/E' med: 8.7 MV E/A: 0.83 MV V2 max: 83.5 cm/sec MV P1/2t max mic: 82.8 cm/sec Ao V2 max: 134.8 cm/sec MV max P.8 mmHg MV P1/2t: 96.6 msec Ao max P.3 mmHg MV V2 mean: 49.9 cm/sec Ao V2 mean: 86.1 cm/sec MV mean P.2 mmHg MV dec slope: 251.1 cm/sec2 Ao mean P.5 mmHg MV V2 VTI: 26.2 cm MVA(P1/2t): 2.3 cm2 Ao V2 VTI: 27.5 cm MVA(VTI): 2.4 cm2 LAWRENCE(I,D): 2.3 cm2 LAWRENCE(V,D): 2.0 cm2 LV V1 max: 79.3 cm/sec SV(LVOT): 62.6 ml PA V2 max: 77.0 cm/sec LV V1 max P.5 mmHg LV V1 mean P.3 mmHg LV V1 mean: 53.7 cm/sec LV V1 VTI: 18.8 cm TR max mic: 202.2 cm/sec TR max P.4 mmHg ECHO/Echo Complete Interpretation Summary Left ventricular systolic function is normal. The estimated ejection fraction is 60 %. Mild diffuse mitral valve thickening. Mild mitral valve prolapse, posterior leaflet Trivial mitral valve insufficiency. Mild tricuspid valve insufficiency. Bicuspid aortic valve. Mild diffuse aortic valve thickening. Mild focal aortic valve calcification. Trivial eccentric aortic valve insufficiency. Mild (1+) pulmonic valve insufficiency. The ascending aorta is mildly dilated. Right ventricular systolic pressure estimated to be 19 mmHg. No evidence for diastolic dysfunction. Ordering Physician: Iris Humphries M.D. Referring Physician: Iris Humphries M.D. Performed By: Philip Barnett RCS
== END 2021-11-19 23:59 | disposition home or self-care (01) ==
LOC: CVS 06:30
PROVIDERS: PCP Internal Medicine
DX: Q23.1 Congenital insufficiency of aortic valve (principal); M50.222 Other cervical disc displacement at C5-C6 level; M50.223 Other cervical disc displacement at C6-C7 level
CPT/HCPCS: 72141; 93306

== ENCOUNTER → 2021-12-30 | Outpatient (CLI) | payer OTHER, SELFPAY ==
[2021-12-30 16:19] LABS: Free T3 2.6 pg/mL (2.18-3.98); T4 Free Direct 1.32 ng/dL (0.76-1.46); Thyroid Stim Hormone (TSH) 0.64 uIU/mL (0.358-3.74)
[2022-01-01 14:12] LABS: Thyroid Peroxidase AB < 8 IU/mL (0-34)
== END | disposition home or self-care (01) ==
LOC: LAB 14:14
PROVIDERS: PCP Internal Medicine; Referring Provider Internal Medicine; Visit Provider Internal Medicine
DX: E03.9 Hypothyroidism, unspecified (principal)
CPT/HCPCS: 36415; 84439; 84443; 84481; 86376

== ENCOUNTER → 2022-01-28 | Outpatient (CLI) | payer OTHER, SELFPAY ==
--- NOTE | 2022-01-28 08:46 | BI_ITS ---
MAMMOGRAPHY - BILATERAL SCREENING REASON FOR EXAM: Female, 51 years old. Routine annual screening examination. PERTINENT HISTORY: Non-contributory. TECHNIQUE: Digital bilateral breast alejandro (3D mammographic acquisition) in the CC and MLO projections. 2-D mediolateral oblique (MLO) and craniocaudad (CC) views of both breasts were obtained. CAD: Full Field Digital Mammography with Computer Added Detection was performed. COMPARISON: Comparison is made with prior study dated 01/25/2021 and 07/22/2019. FINDINGS: Breast Composition: The breasts are extremely dense, which lowers the sensitivity of mammography. There are no dominant masses or suspicious calcifications. No other significant abnormalities are identified. There has been no significant change since the prior study. BI/SCRN MAMM (CAD)W/ALEJANDRO BILAT IMPRESSION: Stable bilateral screening mammogram. Yearly follow-up mammogram recommended. (A) ASSESSMENT CATEGORY: BIRADS Category 1: Negative. A letter regarding these results will be sent to the patient by the facility within 30 days. Approximately 10% of breast cancers are not detected by mammography. A normal mammogram should not delay biopsy of a clinically suspicious abnormality. [id number] Electronically Signed: Jose Rafael Luna MD at 10:15 EDT ,
== END | disposition home or self-care (01) ==
LOC: OPBI 08:44
PROVIDERS: PCP Internal Medicine; Referring Provider Internal Medicine; Visit Provider Internal Medicine
DX: Z12.31 Encounter for screening mammogram for malignant neoplasm of breast (principal)
CPT/HCPCS: 77063; 77067

== ENCOUNTER → 2022-04-08 | Outpatient (CLI) | payer OTHER, SELFPAY ==
--- NOTE | 2022-04-08 14:52 | CT_ITS ---
STUDY: CT CHEST WITH CONTRAST REASON FOR EXAM: Female, 51 years old. DILATED AORTIC ROOT RADIATION DOSAGE (If Supplied By Facility): CTDIvol = ( 7.15 ) mGy, DLP = ( 165.34 ) mGycm TECHNIQUE: Transaxial imaging was performed following intravenous administration of 100 ML ISOVUE 300. Multiplanar coronal and sagittal images were reformatted. Individualized dose optimization techniques were used for this CT. COMPARISON: No relevant priors. FINDINGS: CHEST The lungs are normal. There is no demonstrated pleural abnormality. Normal heart and pericardium. Normal mediastinum. Normal hilar regions. Normal unenhanced pulmonary arteries. There is dilatation of the root of the ascending aorta measuring 42.3 mm in transverse dimension. Normal osseous structures. There is no demonstrated abnormality of the visualized upper abdomen. CT/Chest WITH Contrast IMPRESSION: Dilatation of the root of the ascending thoracic aorta measuring 42.3 mm in transverse dimension. Electronically Signed: Jose Rafael Luna MD at 15:33 EDT ,
== END | disposition home or self-care (01) ==
LOC: CT 14:50
PROVIDERS: PCP Internal Medicine; Referring Provider Internal Medicine; Visit Provider Internal Medicine
DX: I77.810 Thoracic aortic ectasia (principal)
CPT/HCPCS: 71260; Q9967

== ENCOUNTER 2022-04-22 17:39 | Emergency (ER) | payer OTHER, SELFPAY ==
[2022-04-22 17:40] VITALS: BP 139/89; PULSE 71; RESP 14; TEMP 36.2; O2SAT 98; BMI 20.2
--- NOTE | 2022-04-22 18:12 | CT_ITS ---
INDICATION: chest pain EXAMINATION: CTA Chest WO/W Contrast Injection TECHNIQUE: Helically acquired images were obtained of the chest following administration of IV contrast. A radiation dose optimization technique was used for this scan. 3D postprocessing images including MIPS were reviewed. IV Contrast dosage and agent: IV 75mL Isovue-370 COMPARISON: CT 04/08/2022. FINDINGS: Lungs: Diffuse scattered tiny centrilobular nodules throughout the lungs. No groundglass opacities or evidence of fibrosis. Mediastinum: The heart is moderate enlarged. No mediastinal, hilar or axillary adenopathy. There is a 4.3 cm ascending thoracic aortic aneurysm. No obvious filling defect seen within the visualized pulmonary arteries. Pleura: Unremarkable Bones/Soft tissues: Mild scattered degenerative changes of the visualized spine. Upper abdomen: No visualized abnormalities in the upper abdomen. CT/CTA Chest W/WO Contrast IMPRESSION: No evidence of acute pulmonary emboli to the segmental level. Diffuse scattered tiny centrilobular nodules throughout the lungs. Possible etiologies include but are not limited to hypersensitivity pneumonitis, respiratory bronchiolitis interstitial lung disease (RB-ILD) and atypical infection. 4.3 cm ascending thoracic aortic aneurysm. Moderate cardiomegaly. Electronically Signed: Saúl Dwyer MD at 20:44 EDT ,
--- NOTE | 2022-04-22 18:12 | EKG12_ITS ---
Test Reason : CP Blood Pressure : / mmHG Vent. Rate : 064 BPM Atrial Rate : 064 BPM P-R Int : 152 ms QRS Dur : 076 ms QT Int : 384 ms P-R-T Axes : 081 064 061 degrees QTc Int : 396 ms Normal sinus rhythm Normal ECG Confirmed by LYN HENSLEY, JORDY ([id number]), international editorial producer RACHID MCKEON ([id number]) on 04/23/2022 9:32:33 AM Referred By: Confirmed By:JORDY NICHOLSON MD
--- NOTE | 2022-04-22 18:13 | EDS_ITS ---
HPI History of Present Illness Chief Complaint: Chest Pain Informant: patient Narrative Narrative: 51-year-old female states that for months she has felt a intermittent ache midsternally in her chest. Today it seemed worse and she felt her heart racing so she took her blood pressure and it was high so she drove to her sister's house took her blood pressure it was a little bit higher so she came to emergency. She states that she has had an echocardiogram that showed aortic dilatation but has not seen cardiology yet. She states that she is not had a change in exercise tolerance. She has no known cardiac disease. No history of PE. She was started on Synthroid earlier this year and had palpitations and her dose lowered. [facility] Medical History Anemia Cardiac murmur Congenital bicuspid aortic valve Herniated nucleus pulposus, C5-6 left Home Medications acetaminophen 500 mg tablet 500 mg PO Q4H PRN PRN Pain Or Fever 07/06/19 [History Last Taken Unknown] meclizine 25 mg tablet 25 mg PO TID PRN PRN Dizziness #20 tabs 06/19/20 [Rx Last Taken Unknown] ondansetron 4 mg disintegrating tablet 4 mg PO Q8H PRN PRN Nausea #10 tabs 06/19/20 [Rx Last Taken Unknown] levothyroxine 25 mcg tablet ea PO 03/28/22 [History Last Taken Unknown] Allergy/AdvReac Type Severity Reaction Status Date / Time Penicillins Allergy Mild rash Verified 04/22/22 17:40 Sulfa (Sulfonamide Allergy Mild rash Verified 04/22/22 17:40 Antibiotics) ampicillin trihydrate Allergy Rash Verified 04/22/22 17:[address] [[address] [facility] [place]] azithromycin Allergy Hives Verified 04/22/22 17:40 doxycycline Allergy Rash Verified 04/22/22 17:40 clarithromycin AdvReac Mild gi upset Verified 04/22/22 17:40 Family History Father Diabetes Surgical History History of dilation and curettage History of nasal septoplasty Social History Smoking Status: Never smoker alcohol intake: never ROS ROS ED Constitutional Constitutional ED: Denies chills or weight loss Eyes Eyes: Denies change in vision or diplopia ENT ENT ED: Reports other Details: No dental/jaw pain ; Denies ear pain, rhinorrhea or sore throat Cardiovascular Cardiovascular: Reports racing heartbeat; Denies chest pain, orthopnea or palpitations Respiratory/Chest Respiratory/Chest: Denies cough, dyspnea, dyspnea on exertion or orthopnea Gastrointestinal Gastrointestinal: Denies abdominal pain, diarrhea, nausea or vomiting Genitourinary Genitourinary ED: Denies dysuria, hematuria or urinary frequency Musculoskeletal Musculoskeletal: Denies arthralgias, back pain or myalgias Integumentary Denies abscess or rash Neurologic Neurologic: Denies headache(s) or weakness Psychiatric Psychiatric: Denies anxiety, depression, suicidal ideation or suicidal thoughts Endocrine Endocrinology: Denies polydipsia, polyphagia or polyuria Allergic/Immunologic Allergic/Immunologic ED: Denies mouth swelling, tongue swelling or urticaria EXAM Physical Exam Const Vital Signs: 04/22/22 17:40 04/22/22 19:41 Temperature 97.1 F L Temperature Source Temporal Pulse Rate 71 62 Respiratory Rate 14 16 Blood Pressure 139/89 H 123/73 H Blood Pressure Mean 105 89 Pulse Ox 98 100 Oxygen Delivery Method Room Air Room Air Positive well nourished and well developed General Appearance ED: well developed HEENT Reports normocephalic, head/scalp atraumatic and moist mucous membranes Eyes PERRL and EOMs intact bilaterally Neck no lymphadenopathy, supple and no JVD Resp normal respiratory effort and clear to auscultation bilaterally Cardio regular rate, regular rhythm and no murmurs GI normal to inspection, nondistended, normoactive bowel sounds and non-tender Palpation: soft Back/Spine no CVA tenderness and normal ROM Extremity normal to inspection General Extremety ED: Negative for edema General Extremity: Negative for edema Neuro oriented x3 and CN's II-XII intact bilaterally Sensorium / Orientation: alert Motor Exam: strength 5/5 throughout Psych mental status grossly normal Mood & Affect: tearful; Negative for depressed Skin no rashes or lesions noted and no wounds MDM MDM MDM Narrative Medical decision making narrative: Patient's troponin is 4. CBC is normal. CMP shows a glucose of 108. CT of the abdomen pelvis does not demonstrate any pulmonary embolism and her aortic aneurysm is at 4.3 cm. I do not think the patient has any infectious etiologies based on her history and clear lung sounds at this time. I do not have a clear explanation for her discomfort but we talked about return instructions and follow-up return if worsening or concerns Lab Data Attestation: I reviewed the patient's lab results. Labs: Laboratory Results - last 24 hr 04/22/22 04/22/22 18:40 18:40 WBC 4.2 L RBC 4.13 L Hgb 13.6 Hct 39.9 MCV 96.6 MCH 32.9 H MCHC 34.1 RDW Std Deviation 41.4 RDW Coeff of Rosi 11.8 Plt Count 161 MPV 11.4 Immature Gran % (Auto) 0.500 Neut % (Auto) 58.3 Lymph % (Auto) 24.0 Hockley % (Auto) 9.8 Eos % (Auto) 6.7 H Baso % (Auto) 0.7 Absolute Neuts (auto) 2.5 Absolute Lymphs (auto) 1.01 Nucleated RBC % 0 Sodium 143 Potassium 3.8 Chloride 109 H Carbon Dioxide 30.0 Anion Gap 4 L BUN 17 Creatinine 0.81 Estim Creat Clear Calc 75.60 Est GFR (MDRD) Af Amer 97 Est GFR (MDRD) Non-Af 80 BUN/Creatinine Ratio 21.1 H Glucose 108 H Calcium 9.5 Troponin I High Sens 4 TSH 1.92 Radiography Diagnostic Testing: Clinical Impression(s) from Imaging Studies Chest CTA 04/22/22 18:12 IMPRESSION: No evidence of acute pulmonary emboli to the segmental level. Diffuse scattered tiny centrilobular nodules throughout the lungs. Possible etiologies include but are not limited to hypersensitivity pneumonitis, respiratory bronchiolitis interstitial lung disease (RB-ILD) and atypical infection. 4.3 cm ascending thoracic aortic aneurysm. Moderate cardiomegaly. Electronically Signed: Saúl Dwyer MD at 20:44 EDT , EKG Initial EKG: Attestation: I personally reviewed and interpreted this EKG as follows: Comments: Normal sinus rhythm with a ventricular rate of 64 bpm. No concerning features of ACS or ectopy noted. Discharge Plan Triage Chief Complaint: Chest Pain ED Provider: Js Johnson Dx/Rx/DC Orders Clinical Impression: Chest pain, Palpitations Instructions: ED Chest Pain, Uncertain Cause Prescriptions: No Action levothyroxine 25 mcg tablet PO Label Comments: TAKE 1 TABLET BY MOUTH EVERY DAY acetaminophen 500 MG tablet 500 mg PO Q4H PRN PRN (Reason: Pain Or Fever) meclizine 25 MG tablet 25 mg PO TID PRN PRN (Reason: Dizziness) Qty: 20 0RF ondansetron 4 MG tablet 4 mg PO Q8H PRN PRN (Reason: Nausea) Qty: 10 0RF Primary Care Provider: Iris Humphries Referrals: Iris Humphries DO [Primary Care Provider] - 1 Week Disposition Disposition: Home, Self Care
[2022-04-22 18:55] LABS: Absolute Lymphocyte Count 1.01 X10^3/uL (0.83-4.51); Absolute Neutrophil Count 2.5 X10^3/uL (2.0-7.7); Basophil# 0.03 X10^3/uL; Basophil% 0.7 % (0-1); Eosinophil# 0.28 X10^3/uL; Eosinophils% 6.7 % (0-5); Hematocrit 39.9 % (37-47); Hemoglobin 13.6 g/dL (12.0-15.0); Lymphocyte # 1.01 X10^3/ul (0.83-4.51); Mean Corp Hgb Conc 34.1 g/dL (32-36); Mean Corpuscular Hgb 32.9 pg (27.0-32.0); Mean Corpuscular Volume 96.6 fL (81-99); Mean Platelet Vol. 11.4 fl (6.2-12.0); Monocyte# 0.41 X10^3/uL; Monocyte% 9.8 % (0-10); NRBC Flagged by Analyzer 0 % (0-5); Neutrophil # 2.45 X10^3/uL (2.7-7.7); Neutrophil % 58.3 % (47-70); Platelet Count 161 K/mm3 (150-450); RBC Distribution Width CV 11.8 % (11.6-14.6); RBC Distribution Width SD 41.4 fl (35.1-43.9); Red Blood Count 4.13 M/mm3 (4.2-5.4); White Blood Count 4.2 K/mm3 (4.4-11.0)
[2022-04-22 19:24] LABS: Anion Gap 4 (5-15); BUN 17 mg/dL (7-18); BUN/Creat Ratio 21.1 RATIO (10-20); Calcium,Total 9.5 mg/dL (8.5-10.1); Chloride 109 mmol/L (98-107); Creatinine, Serum 0.81 mg/dL (0.55-1.02); EST Glomerular Filtration Rate 80 mL/min (>60); Est Glom Filt Rate - Afr Amer 97 mL/min (>60); Glucose 108 mg/dL (74-106); Potassium 3.8 mmol/L (3.5-5.1); Sodium Level 143 mmol/L (136-145); Thyroid Stim Hormone (TSH) 1.92 uIU/mL (0.358-3.74); Troponin-I HS 4 pg/mL (3.0-54.0)
[2022-04-22 19:41] VITALS: BP 123/73; PULSE 62; RESP 16; O2SAT 100
[2022-04-22 21:05] VITALS: O2SAT 97
[2022-04-22 21:08] VITALS: BP 129/76; PULSE 73; RESP 17; O2SAT 98
== END 2022-04-22 21:09 | disposition home or self-care (01) ==
PROVIDERS: Emergency Provider Emergency Medicine; PCP Internal Medicine; Visit Provider Emergency Medicine
DX: R07.9 Chest pain, unspecified (principal); R00.2 Palpitations; Q23.1 Congenital insufficiency of aortic valve; Z79.890 Hormone replacement therapy; Z79.899 Other long term (current) drug therapy
CPT/HCPCS: 71275; 80048; 84443; 84484; 85025; 93005; 99284; Q9967; A4216

== ENCOUNTER → 2022-05-29 | Outpatient (CLI) | payer OTHER, SELFPAY ==
--- NOTE | 2022-05-29 14:10 | PFTCOMP_ITS ---
COMPLETE PULMONARY FUNCTION TEST INTERPRETATION Brief HPI: Patient is a 51-year-old female, currently under the care of myself, who presents to [facility] for complete pulmonary function tests secondary to diagnosis of abnormal CT. Respiratory therapist reports good effort and reproducible results. Interpretation: Forced expiration spirometry shows no large airways obstructive ventilatory defect with an FEV1 of 83% predicted. There is no significant bronchodilator response by strict ATS criteria. Spirograms are of good quality and plateau normally. The respiratory flow volume loop shows a normal pattern. Lung volumes by body plethysmography show a normal total lung capacity at 5.04 L, 94% predicted. All other lung volumes are within normal limits. Diffusion capacity by carbon monoxide is normal at 110% predicted. The airway resistance is normal. No previous pulmonary function tests were available for review. Impression: Grossly normal complete PFT
== END | disposition home or self-care (01) ==
LOC: PSN 08:06
PROVIDERS: PCP Internal Medicine; Referring Provider Internal Medicine Critical Care Medicine; Visit Provider Internal Medicine Critical Care Medicine
DX: R93.89 Abnormal findings on diagnostic imaging of other specified body structures (principal)
CPT/HCPCS: 94060; 94726; 94729

== ENCOUNTER → 2022-07-04 | Outpatient (CLI) | payer OTHER, SELFPAY ==
--- NOTE | 2022-07-04 10:52 | STE_ITS ---
Reason For Study: CHEST PAIN Stress Results Protocol: Luis Alberto Protocol Maximum Predicted HR: 171 bpm Target HR: 145 bpm % Maximum Predicted HR: 96 % DurationHeart Rate Stage (mm:ss) (bpm) BP BASELINE 65 120/76 STAGE 1 3:00 117 118/78 STAGE 2 3:00 141 152/82 STAGE 3 1:00 164 / RECOVERY 85 110/78 Stress Duration: 7:00 mm:ss Maximum Stress HR: 164 bpm METS: 9 Baseline Echocardiogram Findings Stress Echo Wall motion Data Resting WM Intermediate WM Stress WM Resting Wall Motion Wall Motion Stress All segments Normal. All segments Hyperkinetic. Ejection Fraction 60 %. Ejection Fraction 70 %. Stress Results Heart rate response: Technically adequate: Greater than 85% predicted maximal heart rate Blood pressure response: Normal resting blood pressure-appropriate response Rhythm: Rare PVC pretest and during early exercise Functional capacity: Good Stopped secondary to: Leg discomfort. EKG Data Baseline ECG: Normal sinus rhythm. Peak exercise ECG: No obvious ECG changes. Symptoms with Stress No report of chest discomfort during exercise or recovery. ECHO/Stress Test Echo w/o Contrast Interpretation Summary Negative (adequate) stress echocardiogram Ordering Physician: Gareth Hill Referring Physician: Gareth Hill MD Performed By: Muriel Khanna RDCS
== END | disposition home or self-care (01) ==
LOC: CVS 10:51
PROVIDERS: PCP Internal Medicine; Visit Provider Internal Medicine Cardiovascular Disease
DX: R07.9 Chest pain, unspecified (principal)
CPT/HCPCS: 93017; 93350

== ENCOUNTER → 2022-09-10 | Outpatient (CLI) | payer OTHER, SELFPAY ==
--- NOTE | 2022-09-10 14:34 | CT_ITS ---
STUDY: CT CHEST WITHOUT CONTRAST REASON FOR EXAM: Female, [address] - miliary pattern apr 2022 RADIATION DOSAGE (If Supplied By Facility): CTDIvol = ( 5.17 ) mGy, DLP = ( 176.03 ) mGycm TECHNIQUE: Transaxial imaging was performed without the administration of intravenous contrast material. Multiplanar coronal and sagittal images were reformatted. Individualized dose optimization techniques were used for this CT. COMPARISON: Comparison is made with prior study dated 04/08/2022 and 04/22/2022. FINDINGS: CHEST The lungs are normal. There is no demonstrated pleural abnormality. Normal heart and pericardium. Normal mediastinum. Normal hilar regions. Normal unenhanced pulmonary arteries. There is dilatation of the ascending aorta with a transverse dimension of 44.2 mm. Normal osseous structures. There is no demonstrated abnormality of the visualized upper abdomen. CT/Chest without Contrast IMPRESSION: Stable dilatation of the root of the ascending thoracic aorta. The lungs are clear. Electronically Signed: Jose Rafael Luna MD at 15:24 EST ,
== END | disposition home or self-care (01) ==
PROVIDERS: PCP Internal Medicine; Visit Provider Internal Medicine Critical Care Medicine
DX: R93.89 Abnormal findings on diagnostic imaging of other specified body structures (principal)
CPT/HCPCS: 71250

== ENCOUNTER → 2022-12-30 | Outpatient (CLI) | payer OTHER, SELFPAY ==
--- NOTE | 2022-12-30 08:54 | ECHOD_ITS ---
Reason For Study: BICUSPID AORTIC VALVE Procedure This was a 2D Doppler, Color Flow transthoracic echocardiogram. Exam performed in department. Left Ventricle Normal LV size. Left ventricular systolic function is normal. The estimated ejection fraction is 55 %. No regional wall motion abnormalities noted. Right Ventricle Normal RV size. Normal systolic function. Atria Normal left atrium. Normal right atrium. Mitral Valve Mild mitral valve prolapse. Tricuspid Valve Normal tricuspid valve. Mild tricuspid valve insufficiency. Pulmonary artery systolic pressure is 32 mmHg. Aortic Valve Bicuspid aortic valve. Pulmonic Valve Normal pulmonic valve. Great Vessels Mildly dilated aortic root. The pulmonary artery is normal size. Normal inferior vena cava. Pericardium/Pleural No pericardial effusion. MMode/2D Measurements & Calculations LVIDd: 3.9 cm IVSd: 0.81 cm LVOT diam: 2.2 cm LVIDs: 2.5 cm LVPWd: 0.80 cm LVOT area: 3.9 cm2 RVDd: 3.4 cm FS: 34.1 % Ao root diam: 3.3 cm LAV(MOD-bp): 26.6 ml LVAd ap4: 25.0 cm2 LAV(MOD-bp) Indexed: 16.3 ml/m2 LVLd ap4: 6.9 cm LAV(MOD-sp2): 27.3 ml EDV(MOD-sp4): 74.7 ml LAV(MOD-sp4): 24.4 ml EDV(sp4-el): 77.2 ml LVAs ap4: 13.7 cm2 LVLs ap4: 5.6 cm ESV(MOD-sp4): 28.0 ml ESV(sp4-el): 28.6 ml EF(MOD-sp4): 62.5 % EF(sp4-el): 62.9 % SV(MOD-sp4): 46.7 ml SV(sp4-el): 48.6 ml Aortic Valve Planimetry: 2.5 cm2 LA A4 area: 11.4 cm2 LA dimension(2D): 2.4 cm RA A4 area: 10.1 cm2 Time Measurements MV dec time: 0.19 sec Doppler Measurements & Calculations MV E max mic: 78.9 cm/sec Lat Peak E' Mic: 11.3 cm/sec Med Peak E' Mic: 11.7 cm/sec MV A max mic: 75.2 cm/sec E/E' lat: 7.0 E/E' med: 6.8 MV E/A: 1.0 Ao V2 max: 158.7 cm/sec LV V1 max: 78.9 cm/sec SV(LVOT): 71.8 ml Ao max P.1 mmHg LV V1 max P.5 mmHg Ao V2 mean: 110.2 cm/sec LV V1 mean P.5 mmHg Ao mean P.5 mmHg LV V1 mean: 57.4 cm/sec Ao V2 VTI: 33.6 cm LV V1 VTI: 18.6 cm AV (velocity ratio): 0.55 LAWRENCE(I,D): 2.1 cm2 LAWRENCE(V,D): 1.9 cm2 PA V2 max: 94.0 cm/sec TR max mic: 270.4 cm/sec TR max P.2 mmHg ECHO/Echo Complete Interpretation Summary Normal LV size. Left ventricular systolic function is normal. The estimated ejection fraction is 55 %. Bicuspid aortic valve. Mildly dilated aortic root. Compared to the previous the above is essentially the same. Ordering Physician: Gareth Hill Referring Physician: CLAY BROCK Performed By: Muriel Khanna RDCS
== END | disposition home or self-care (01) ==
PROVIDERS: PCP Internal Medicine; Referring Provider Internal Medicine Cardiovascular Disease; Visit Provider Internal Medicine Cardiovascular Disease
DX: R07.9 Chest pain, unspecified (principal); I71.20 Thoracic aortic aneurysm, without rupture, unspecified; Q23.1 Congenital insufficiency of aortic valve
CPT/HCPCS: 93306

== ENCOUNTER → 2023-01-30 | Outpatient (CLI) | payer OTHER, SELFPAY ==
--- NOTE | 2023-01-30 10:14 | BI_ITS ---
MAMMOGRAPHY - BILATERAL SCREENING REASON FOR EXAM: Female, 52 years old. Routine annual screening examination. PERTINENT HISTORY: Non-contributory. TECHNIQUE: Digital bilateral breast alejandro (3D mammographic acquisition) in the CC and MLO projections. 2-D mediolateral oblique (MLO) and craniocaudad (CC) views of both breasts were obtained. CAD: Full Field Digital Mammography with Computer Added Detection was performed. COMPARISON: Comparison is made with prior study dated 09/30/2021 and January 25, 2021. FINDINGS: Breast Composition: The breasts are extremely dense, which lowers the sensitivity of mammography. There are no dominant masses or suspicious calcifications. No other significant abnormalities are identified. There has been no significant change since the prior study. BI/SCRN MAMM (CAD)W/ALEJANDRO BILAT IMPRESSION: Stable bilateral screening mammogram. Yearly follow-up mammogram recommended. (A) ASSESSMENT CATEGORY: BIRADS Category 1: Negative. A letter regarding these results will be sent to the patient by the facility within 30 days. Approximately 10% of breast cancers are not detected by mammography. A normal mammogram should not delay biopsy of a clinically suspicious abnormality. [id number] Electronically Signed: Jose Rafael Luna MD at 11:12 EDT ,
== END | disposition home or self-care (01) ==
LOC: OPBI 10:13
PROVIDERS: PCP Internal Medicine; Referring Provider Internal Medicine; Visit Provider Internal Medicine
DX: Z12.31 Encounter for screening mammogram for malignant neoplasm of breast (principal)
CPT/HCPCS: 77063; 77067

== ENCOUNTER → 2023-03-25 | Outpatient (CLI) | payer OTHER, SELFPAY ==
--- NOTE | 2023-03-25 07:53 | CT_ITS ---
STUDY: CT MAXILLOFACIAL SINUSES REASON FOR EXAM: Female, 52 years old. CHRONIC SINUSITIS. History of prior sinus plasty. RADIATION DOSAGE (If Supplied By Facility): CTDIvol = ( 33.06 ) mGy, DLP = ( 788.40 ) mGycm TECHNIQUE: The patient was scanned in a multi detector CT scanner. High resolution axial imaging was performed without the administration of intravenous contrast material. Sagittal and coronal images were reconstructed. Individualized dose optimization techniques were used for this CT. COMPARISON: Comparison is made with prior study dated October 28, 2018. FINDINGS: FRONTAL SINUSES: Mucosal thickening of the left frontal sinus. ETHMOIDAL SINUSES: Partial opacification of the ethmoid sinuses bilaterally. MAXILLARY SINUSES: Mucosal hypertrophy of the maxillary sinus bilaterally worse on the right side. SPHENOIDAL SINUSES: Normal aeration, without mucosal inflammatory disease. Compromise of the ostiomeatal conference bilaterally due to mucosal hypertrophy. Normal bilateral middle turbinates. Normal bilateral inferior turbinates. There is a right sided nasal septal deviation with a right sided nasal septal spur. There is patency of the bilateral nasal airways. The visualized osseous structures are normal. The visualized bilateral orbital contents are normal. CT/Sinus/Facial Bone IMPRESSION: Maxillary and ethmoid sinusitis. Nasal septal deviation towards the right side of midline. Electronically Signed: Jose Rafael Luan MD at 9:43 EDT ,
== END | disposition home or self-care (01) ==
LOC: CT 07:51
PROVIDERS: PCP Internal Medicine; Referring Provider Otolaryngology; Visit Provider Otolaryngology
DX: J32.8 Other chronic sinusitis (principal); R09.81 Nasal congestion
CPT/HCPCS: 70486

== ENCOUNTER → 2023-05-11 | Outpatient (CLI) | payer OTHER, SELFPAY ==
[2023-05-11 10:27] LABS: Hematocrit 39.1 % (37-47); Hemoglobin 12.9 g/dL (12.0-15.0); Mean Corpuscular Hgb 32.9 pg (27.0-32.0); Mean Corpuscular Volume 99.7 fL (81-99); Mean Platelet Vol. 12.1 fl (6.2-12.0); Platelet Count 163 K/mm3 (150-450); RBC Distribution Width CV 11.8 % (11.6-14.6); RBC Distribution Width SD 42.8 fl (35.1-43.9); Red Blood Count 3.92 M/mm3 (4.2-5.4); White Blood Count 3.6 K/mm3 (4.4-11.0)
[2023-05-11 11:25] LABS: Anion Gap 4 (5-15); BUN 24 mg/dL (7-18); BUN/Creat Ratio 29.6 RATIO (10-20); Calcium,Total 9.1 mg/dL (8.5-10.1); Chloride 111 mmol/L (98-107); Creatinine, Serum 0.81 mg/dL (0.55-1.02); EST Glomerular Filtration Rate 79 mL/min (>60); Est Glom Filt Rate - Afr Amer 96 mL/min (>60); Glucose 70 mg/dL (74-106); Sodium Level 143 mmol/L (136-145)
== END | disposition home or self-care (01) ==
LOC: PSN 08:55
PROVIDERS: PCP Internal Medicine; Referring Provider Otolaryngology; Visit Provider Otolaryngology
DX: Z01.818 Encounter for other preprocedural examination (principal)
CPT/HCPCS: 36415; 80048; 85027; 93005

== ENCOUNTER → 2023-06-02 | Outpatient (CLI) | payer OTHER, SELFPAY ==
--- NOTE | 2023-06-02 | ETH_PTH ---
PATIENT: THEA SEGURA LOC: [facility] U#:[id number] AGE/SX: 52/F ROOM: RE06/02/[address]: Dr. Saúl Perez MD : 1970 BED: DIS: 06/02/2023 SPEC #: [id number] RECD: 06/02/23 15:11 STATUS: STANTON AREVALO #: [id number] NADINE: 06/02/23 00:[address]: Saúl Perez DEPT: SURGICAL PATHOLOGY RECD BY: Edmund Saldaña ENTERED: 06/03/23 09:22 SP TYPE: ETH TISS OTHR DR: Dr. Iris Humphries, [facility] Tissues: A - Ethmoid sinus, NOS B - Ethmoid sinus, NOS Procedures: Decalcification bone/plaque Surgery Specimen Level III HEADER OPERATION: Functional endoscopic and sinus surgery and septoplasty PRE-OP DIAGNOSIS: Hypertrophy of nasal turbinates, deviated nasal septum, chronic pansinusitis, nasal congestion TISSUE SUBMITTED: A - Right sinus contents, B - Left sinus contents MICROSCOPIC DIAGNOSIS A. Right sinus contents, curettings: Chronic sinusitis. Fragments of bone with no pathologic change. B. Left sinus contents, curettings: Chronic sinusitis. Fragments of bone with no pathologic change. CJ:yvonne 06/08/2023 MICROSCOPIC DESCRIPTION Slides are reviewed. GROSS DESCRIPTION A - Received in fixative is one container labeled with the patient's name and designated right sinus contents. The specimen consists of multiple irregular fragments of henry soft tissue mixed with fragments of bone that in aggregate measure 3.0 x 2.5 x 0.4 cm. The specimen is totally submitted in one cassette after decalcification. B - Received in fixative is one container labeled with the patient's name and designated left sinus contents. The specimen consists of multiple irregular fragments of henry soft tissue mixed with fragments of bone that in aggregate measure 3.0 x 2.5 x 0.3 cm. The specimen is totally submitted in one cassette after decalcification. / CJ:yvonne 06/03/2023 TC:3 CPT: 03206 x2, 59573 x2
== END | disposition home or self-care (01) ==
LOC: LABSPEC 15:16
PROVIDERS: PCP Internal Medicine; Visit Provider Otolaryngology
DX: J32.9 Chronic sinusitis, unspecified (principal)
CPT/HCPCS: 88304; 88305; 88311

== ENCOUNTER 2023-06-04 00:54 | Emergency (ER) | payer OTHER, SELFPAY ==
[2023-06-04 00:55] VITALS: BP 133/86; PULSE 69; RESP 19; TEMP 36.9; O2SAT 98; BMI 21.4
--- NOTE | 2023-06-04 01:10 | EDS_ITS ---
HPI History of Present Illness Chief Complaint: Other, Pain/Inj Informant: patient Onset/Context/Timing Onset: Today Context: Gradual Onset Timing: Continuous Quality: Swelling Location: Throat Worsened by: Swallowing Relieved by: Nothing Narrative Narrative: Patient presents with sensation of swelling in her throat that has been getting worse throughout the night tonight. Patient states she is having difficulty swallowing. Patient states she was able to swallow Tylenol tonight. However, she stated it was difficult. Patient is able to swallow liquids. Patient states that earlier today she was able to eat food. Patient denies any shortness of breath. Patient denies any fevers or chills. Patient denies any nausea or vomiting. Patient denies any chest pain or shortness of breath. Patient had recent nasal surgery 3 days ago and has packing in her bilateral nares. [facility] Medical History Anemia Bicuspid aortic valve Cardiac murmur Congenital bicuspid aortic valve GERD (gastroesophageal reflux disease) Herniated nucleus pulposus, C5-6 left Hypothyroidism Thoracic aortic aneurysm without rupture Home Medications mupirocin 2 % topical ointment (Centany) 1 applic topical TID 06/04/23 [History Last Taken Unknown] Allergy/AdvReac Type Severity Reaction Status Date / Time Penicillins Allergy Mild rash Verified 06/04/23 00:55 Sulfa (Sulfonamide Allergy Mild rash Verified 06/04/23 00:55 Antibiotics) ampicillin trihydrate Allergy Rash Verified 06/04/23 00:55 [From [facility]] azithromycin Allergy Hives Verified 06/04/23 00:55 doxycycline Allergy Rash Verified 06/04/23 00:55 clarithromycin AdvReac Mild gi upset Verified 06/04/23 00:55 Family History Father Diabetes Surgical History History of dilation and curettage History of nasal septoplasty History of tonsillectomy Social History Smoking Status: Never smoker alcohol intake: never substance use type: does not use caffeine: No ROS ROS ED Constitutional Constitutional ED: Denies chills or fever(s) Eyes Eyes: Denies blurry vision or diplopia ENT ENT ED: Denies rhinorrhea or sore throat Cardiovascular Cardiovascular: Denies chest pain or palpitations Respiratory/Chest Respiratory/Chest: Denies cough or dyspnea Gastrointestinal Gastrointestinal: Denies nausea or vomiting Genitourinary Genitourinary ED: Denies dysuria or hematuria Musculoskeletal Musculoskeletal: Denies back pain or neck pain Integumentary Denies abscess or rash Neurologic Neurologic: Denies headache(s) or weakness Allergic/Immunologic Allergic/Immunologic ED: Denies mouth swelling or urticaria EXAM Physical Exam Const Vital Signs: 06/04/23 00:55 06/04/23 00:59 Temperature 98.5 F Temperature Source Oral Pulse Rate 69 Respiratory Rate 19 H Respiratory Effort Normal Non-Labored Respiratory Pattern Normal Blood Pressure 133/86 H Blood Pressure Mean 101 Pulse Ox 98 Oxygen Delivery Method Room Air Positive well nourished and well developed General Appearance ED: well developed and NAD HEENT Reports moist mucous membranes HEENT Narrative: Oral mucosa is pink and moist. Oropharynx is clear. Airway is patent. Eyes PERRL and EOMs intact bilaterally Neck supple and no JVD Resp normal respiratory effort and clear to auscultation bilaterally Cardio regular rate and regular rhythm GI non-tender and non-distended Palpation: soft Neuro oriented x3, CN's II-XII intact bilaterally and no sensory deficits noted Sensorium / Orientation: alert Motor Exam: strength 5/5 throughout Psych mental status grossly normal MDM MDM MDM Narrative Medical decision making narrative: Differential diagnosis includes pharyngitis, parapharyngeal abscess, epiglottitis, and postnasal drainage. CBC will be obtained to assess for leukocytosis and anemia. Basic metabolic profile will be obtained to assess for electrolyte abnormality and renal function. CT scan of the soft tissue neck will be obtained to assess for parapharyngeal abscess or mass. Lab Data Attestation: I reviewed the patient's lab results. Lab results narrative: CBC was reviewed. There is a stable anemia with a hemoglobin of 11.2 and 5. Platelets were slightly low at 1.4. Patient metabolic profile was reviewed and was essentially within normal limits. Labs: Laboratory Results - last 24 hr 06/04/23 01:27 WBC 8.1 RBC 3.35 L Hgb 11.2 L Hct 33.5 L MCV 100.0 H MCH 33.4 H MCHC 33.4 RDW Std Deviation 43.0 RDW Coeff of Rosi 11.8 Plt Count 124 L MPV 11.9 Immature Gran % (Auto) 0.200 Neut % (Auto) 69.1 Lymph % (Auto) 21.5 [place] % (Auto) 8.3 Eos % (Auto) 0.7 Baso % (Auto) 0.2 Absolute Neuts (auto) 5.6 Absolute Lymphs (auto) 1.74 Nucleated RBC % 0 Sodium 145 Potassium 3.6 Chloride 111 H Carbon Dioxide 30.0 Anion Gap 4 L BUN 19 H Creatinine 0.87 Estim Creat Clear Calc 72.42 Est GFR (MDRD) Af Amer 89 Est GFR (MDRD) Non-Af 73 BUN/Creatinine Ratio 21.9 H Glucose 102 Calcium 8.8 Radiography Diagnostic Testing: Clinical Impression(s) from Imaging Studies Soft Tissue Neck CT 06/04/23 01:16 IMPRESSION: 1. Normal CT examination of the soft tissues the neck. 2. Moderate acute on chronic paranasal sinus disease. Electronically Signed: Edmund Hernandez MD at 3:03 EDT , CT scan of the soft tissue neck was ordered. There is no acute abnormality noted. This was interpreted by the radiologist and was also dependently reviewed by myself. Treatment and Re-Evaluation :: Patient is feeling better on reevaluation. Patient was advised of her findings. Patient was instructed to follow-up with her ENT surgeon as scheduled. Patient was instructed to call her office for further instructions on how to care for the dressing. Patient was instructed to return if worse in any way. Patient understood and was agreeable with the plan. All questions were answered. Discharge Plan Triage Chief Complaint: Other, Pain/Inj ED Provider: Reginald Beasley Dx/Rx/DC Orders Clinical Impression: Dysphagia Instructions: ED Dysphagia (Adult) Prescriptions: No Action mupirocin [Centany] 2 % ointment 1 applic topical TID Primary Care Provider: Iris Humphries Referrals: Saúl Perez MD [Med Staff - Active Staff] - Keep Yasmany appointment Iris Humphries DO [Primary Care Provider] - 1-2 Weeks Disposition Disposition: Home, Self Care
--- NOTE | 2023-06-04 01:16 | CT_ITS ---
STUDY: CT NECK WITH CONTRAST REASON FOR EXAM: Female, 52 years old. Dysphagia TECHNIQUE: Transaxial CT imaging of the neck was performed following the administration of intravenous contrast. Individualized dose optimization techniques were used for this CT. COMPARISON: None FINDINGS: Normal visualized brain. Normal visualized scalp. Normal visualized facial soft tissues. Normal visualized orbital globes and retrobulbar soft tissues. Normal scallop dredger spaces. Normal parapharyngeal fat planes. Normal pharyngeal soft tissues. Normal airway. Normal salivary glands. Normal lymph nodes. Normal supraclavicular soft tissues. Normal mediastinal soft tissues. Mucoperiosteal thickening and fluid within the paranasal sinuses with near complete opacification of the right maxillary sinus. No skull abnormality. No maxillofacial bony abnormality. Reversal of the normal cervical lordosis. Mild multilevel degenerative change of the visualized cervicothoracic spine. Mild aneurysmal dilatation visualized ascending aorta measuring 4 cm. Symmetric biapical pleural parenchymal scarring. CT/Soft Tissue Neck WITH Contrast IMPRESSION: 1. Normal CT examination of the soft tissues the neck. 2. Moderate acute on chronic paranasal sinus disease. Electronically Signed: Edmund Hernandez MD at 3:03 EDT ,
[2023-06-04 01:42] LABS: Absolute Lymphocyte Count 1.74 X10^3/uL (0.83-4.51); Absolute Neutrophil Count 5.6 X10^3/uL (2.0-7.7); Basophil# 0.02 X10^3/uL; Basophil% 0.2 % (0-1); Eosinophil# 0.06 X10^3/uL; Eosinophils% 0.7 % (0-5); Hematocrit 33.5 % (37-47); Hemoglobin 11.2 g/dL (12.0-15.0); Lymphocyte # 1.74 X10^3/ul (0.83-4.51); Lymphocyte % 21.5 % (19-41); Mean Corp Hgb Conc 33.4 g/dL (32-36); Mean Corpuscular Hgb 33.4 pg (27.0-32.0); Mean Platelet Vol. 11.9 fl (6.2-12.0); Monocyte# 0.67 X10^3/uL; Monocyte% 8.3 % (0-10); NRBC Flagged by Analyzer 0 % (0-5); Neutrophil # 5.59 X10^3/uL (2.7-7.7); Neutrophil % 69.1 % (47-70); Platelet Count 124 K/mm3 (150-450); RBC Distribution Width CV 11.8 % (11.6-14.6); Red Blood Count 3.35 M/mm3 (4.2-5.4); White Blood Count 8.1 K/mm3 (4.4-11.0)
[2023-06-04 01:57] LABS: Anion Gap 4 (5-15); BUN 19 mg/dL (7-18); BUN/Creat Ratio 21.9 RATIO (10-20); Calcium,Total 8.8 mg/dL (8.5-10.1); Chloride 111 mmol/L (98-107); Creatinine, Serum 0.87 mg/dL (0.55-1.02); EST Glomerular Filtration Rate 73 mL/min (>60); Est Glom Filt Rate - Afr Amer 89 mL/min (>60); Estimated Creatinine Clearance 72.42 ml/min; Glucose 102 mg/dL (74-106); Potassium 3.6 mmol/L (3.5-5.1); Sodium Level 145 mmol/L (136-145)
[2023-06-04 03:23] VITALS: PULSE 75; RESP 18
== END 2023-06-04 03:25 | disposition home or self-care (01) ==
PROVIDERS: Emergency Provider Emergency Medicine; PCP Internal Medicine; Visit Provider Emergency Medicine
DX: R13.10 Dysphagia, unspecified (principal); Q23.1 Congenital insufficiency of aortic valve; E03.9 Hypothyroidism, unspecified; K21.9 Gastro-esophageal reflux disease without esophagitis; Z98.890 Other specified postprocedural states
CPT/HCPCS: 70491; 80048; 85025; 99283; Q9967; A4216

== ENCOUNTER → 2025-03-17 | Outpatient (CLI) | payer OTHER, SELFPAY ==
--- NOTE | 2025-03-17 13:54 | ECHOD_ITS ---
Reason For Study Reason For Study: Bicuspid AV Procedure This was a 2D Doppler, Color Flow transthoracic echocardiogram. Exam performed in department. Left Ventricle Normal LV size. Left ventricular systolic function is normal. The left ventricular ejection fraction is 55 %. No regional wall motion abnormalities noted. Right Ventricle Normal RV size. Normal systolic function. Atria Normal left atrium. Normal right atrium. Mitral Valve Normal mitral valve. Tricuspid Valve Normal tricuspid valve. Mild tricuspid valve insufficiency. Pulmonary artery systolic pressure is 22 mmHg. Aortic Valve Bicuspid aortic valve. Peak aortic valve gradient 10 mmHg. Mean aortic valve gradient 6 mmHg. Pulmonic Valve Normal pulmonic valve. Great Vessels Mild to moderately dilated aortic root. The pulmonary artery is normal size. Normal inferior vena cava. Pericardium/Pleural No pericardial effusion. MMode/2D Measurements & Calculations LVIDd: 3.6 cm IVSd: 0.98 cm LVOT diam: 2.2 cm LVIDs: 2.4 cm LVPWd: 0.96 cm LVOT area: 3.7 cm2 RVDd: 3.3 cm FS: 34.6 % asc Aorta Diam: 4.2 cm LAV(MOD-bp): 28.2 ml LVAd ap4: 23.2 cm2 LAV(MOD-bp) Indexed: 17.2 ml/m2 LVLd ap4: 7.1 cm LAV(MOD-sp2): 33.1 ml EDV(MOD-sp4): 63.1 ml LAV(MOD-sp4): 21.6 ml EDV(sp4-el): 63.9 ml LVAs ap4: 14.3 cm2 LVLs ap4: 6.4 cm ESV(MOD-sp4): 26.9 ml ESV(sp4-el): 26.9 ml EF(MOD-sp4): 57.4 % EF(sp4-el): 57.9 % LVAd ap2: 21.5 cm2 SV(MOD-sp4): 36.2 ml SV(MOD-sp2): 30.8 ml LVLd ap2: 7.2 cm SI(MOD-sp4): 22.1 ml/m2 SI(MOD-sp2): 18.8 ml/m2 EDV(MOD-sp2): 54.2 ml EDV(sp2-el): 54.3 ml LVAs ap2: 13.0 cm2 LVLs ap2: 6.4 cm ESV(MOD-sp2): 23.4 ml ESV(sp2-el): 22.5 ml EF(MOD-sp2): 56.8 % SV(sp4-el): 37.0 ml LA dimension(2D): 2.2 cm LA A4 area: 11.8 cm2 RA A4 area: 13.6 cm2 TAPSE: 1.7 cm Time Measurements MV dec time: 0.19 sec Doppler Measurements & Calculations MV E max mic: 82.9 cm/sec Lat Peak E' Mic: 9.8 cm/sec Med Peak E' Mic: 9.9 cm/sec MV A max mic: 74.2 cm/sec E/E' lat: 8.5 E/E' med: 8.4 MV E/A: 1.1 Ao V2 max: 161.7 cm/sec LV V1 max: 90.9 cm/sec MV dec slope: 439.2 cm/sec2 Ao max P.5 mmHg LV V1 max P.3 mmHg Ao V2 mean: 111.0 cm/sec LV V1 mean P.0 mmHg Ao mean P.7 mmHg LV V1 mean: 65.7 cm/sec Ao V2 VTI: 35.2 cm LV V1 VTI: 22.3 cm AV (velocity ratio): 0.63 LAWRENCE(I,D): 2.3 cm2 LAWRENCE(V,D): 2.1 cm2 SV(LVOT): 82.3 ml TR max mic: 218.3 cm/sec TR max P.1 mmHg ECHO/Echo Complete Interpretation Summary Normal LV size. Left ventricular systolic function is normal. The left ventricular ejection fraction is 55 %. Bicuspid aortic valve. Mild to moderately dilated aortic root. Ordering Physician: Jose A Fishman Referring Physician: Iris Humphries M.D. Performed By: Agueda Lane RDCS
== END | disposition home or self-care (01) ==
PROVIDERS: PCP Internal Medicine; Referring Provider Nurse Practitioner Family; Visit Provider Nurse Practitioner Family
DX: I71.20 Thoracic aortic aneurysm, without rupture, unspecified (principal); Q23.1 Congenital insufficiency of aortic valve
CPT/HCPCS: 93306

== ENCOUNTER → 2025-03-24 | Outpatient (CLI) | payer OTHER, SELFPAY ==
--- NOTE | 2025-03-24 08:21 | CT_ITS ---
PROCEDURE: CTA CHEST W/WO CONTRAST 03/24/2025 REASON FOR EXAM: MEASURE AORTIC ROOT TECHNIQUE: CTA CHEST W/WO CONTRAST Multiplanar Sagittal and Coronal images were obtained. CONTRAST: Isovue 370 VOLUME: 100 mL One or more dose reduction techniques were used (e.g., Automated exposure control, adjustment of the mA and/or kV according to patient size, use of iterative reconstruction technique). RADIATION DOSE SUMMARY: CTDlvol: 6.75 mGy DLP: 212.17 mGycm COMPARISON: Prior study dated April 22, 2022 in September 10, 2022. FINDINGS: Hardware: None Lymph nodes: No hilar or mediastinal lymph nodes. Heart: The heart is nonenlarged. No coronary artery calcification is seen. Thoracic Aorta: The root of the ascending thoracic aorta measures 45 mm. Pulmonary Vessels: No evidence of pulmonary embolism. Lungs and Airways: The lungs are clear. Pleura: No pleural effusion. Upper Abdomen: Unremarkable Bones: Bone windows are unremarkable. CT/CTA Chest W/WO Contrast IMPRESSION: The root of the ascending thoracic aorta measures 45 mm in transverse dimension . Essentially stable examination. Reading Location: [id number]
== END | disposition home or self-care (01) ==
LOC: CT 08:21
PROVIDERS: PCP Internal Medicine; Referring Provider Nurse Practitioner Family; Visit Provider Nurse Practitioner Family
DX: I71.20 Thoracic aortic aneurysm, without rupture, unspecified (principal); Q23.1 Congenital insufficiency of aortic valve
CPT/HCPCS: 71275; Q9967

== ENCOUNTER → 2025-05-01 | Outpatient (CLI) | payer OTHER, SELFPAY ==
--- NOTE | 2025-05-01 08:30 | BI_ITS ---
EXAM: 01/30/2023 and 01/28/2022 DATE: 05/01/2025 CLINICAL HISTORY: F, Age 54 y/o , SCRN MAMM (CAD)W/ALEJANDRO BILAT TECHNIQUE: Procedure Code: [id number] Modality: MG Procedure: SCRN MAMM (CAD)W/ALEJANDRO BILAT COMPARISON: Prior exam(s) dated 01/30/2023 and 01/28/2022. FINDINGS: TISSUE DENSITY: The breasts are heterogeneously dense, which may obscure small masses.. Bilateral Breast Mammographic Findings: No significant masses, calcifications or other abnormalities are identified. Benign round microcalcifications are seen in both breasts. BI/SCRN MAMM (CAD)W/ALEJANDRO BILAT IMPRESSION: Benign screening mammogram. OVERALL FINAL ASSESSMENT BI-RADS 2: BENIGN RECOMMENDATION: Routine annual follow-up in 1 Year A letter with findings and recommendations will be mailed to the patient. Reading Location: [id number]
== END | disposition home or self-care (01) ==
PROVIDERS: PCP Internal Medicine; Referring Provider Internal Medicine; Visit Provider Internal Medicine
DX: Z12.31 Encounter for screening mammogram for malignant neoplasm of breast (principal)
CPT/HCPCS: 77063; 77067